=== PATIENT | female | born 1940 | race Caucasian/White ===

== ENCOUNTER 2022-04-10 19:49 | Observation (INO) | payer MEDICARE, SELFPAY ==
--- NOTE | ~2022-04-10 | XR_ITS ---
EXAMINATION: XR chest 2V DATE: 04/10/2022 21:03 INDICATION: Fever. Weakness. Confusion. TECHNIQUE: Frontal and lateral views of the chest were obtained. COMPARISON: None. FINDINGS: There are airspace opacities in the lower lung zones. No pleural effusion or pneumothorax. The heart size is normal. There is mild chronic anterior wedging of multiple midthoracic vertebral manolo dies. IMPRESSION: 1. Airspace opacities in the lower lung zones, consistent with atelectasis versus pneumonia. Reviewed, dictated and finalized at location A. IMPRESSION: 1. Airspace opacities in the lower lung zones, consistent with atelectasis vers us pneumonia.
[2022-04-10 20:02] VITALS: BP 95/48; PULSE 95; RESP 18; TEMP 36.7; O2SAT 94
[2022-04-10 20:49] VITALS: BP 97/69; PULSE 87; RESP 20; O2SAT 91
[2022-04-10 21:06] VITALS: BP 104/65
--- NOTE | 2022-04-10 21:09 | ED.FEVER ---
HPI - Fever General Chief Complaint: Fever Stated Complaint: weakness Time Seen by Provider: 04/10/22 20:41 History of Present Illness HPI Narrative: 82-year-old female presented the emergency department with family for evaluation of fever. Family states patient does have underlying history of dementia but has been more confused over the last few days. They report that the patient has had dark foul-smelling urine for the last few days. Family members have also had upper respiratory infections as recently as a week and a half ago. No confirmed COVID in the household. Family reports patient does have a history of underlying kidney disease. Related Data Home Medications Medication Instructions Recorded Confirmed carvedilol 3.125 mg tablet mg 04/11/22 pravastatin 40 mg tablet mg 04/11/22 rivaroxaban 2.5 mg tablet (Xarelto) mg 04/11/22 Allergies Allergy/AdvReac Type Severity Reaction Status Date / Time Sulfa (Sulfonamide Allergy Unknown Verified 04/10/22 20:11 Antibiotics) diphenhydramine AdvReac Nervousness Verified 04/10/22 20:50 [From Benadryl] Review of Systems Review of Systems: CONSTITUTIONAL: Fever EYES: Denies visual changes, redness, or discharge. ENT: Denies rhinorrhea, congestion, sore throat, or otalgia. CARDIOVASCULAR: Denies chest pain, palpitations, or edema. RESPIRATORY: Denies cough or dyspnea. GASTROINTESTINAL: Denies abdominal pain, nausea, vomiting, or diarrhea. GENITOURINARY: See HPI SKIN: Denies rash or itching. MUSCULOSKELETAL: Denies back pain, joint pain, or myalgia. NEUROLOGIC: Denies headache, numbness, or weakness. [facility] Past Medical History Medical History (Updated 04/11/22 @ 01:15 by Sherman Pyle DO) Dementia Recurrent UTI Social History Social History (Updated 04/11/22 @ 01:15 by Sherman Pyle DO) Social History: She lives with her daughter. Fairly dependent on family. Difficulty using walker as she would lean forward and fall over with walker. For code status patient is a full code but no intubation. Smoking status: Never smoker Alcohol intake: never Substance use: never Exam Narrative: APPEARANCE: Well appearing, no pain, no distress, well-nourished. HEAD: normocephalic, atraumatic. EYES: PERRLA/EOMI, conjunctivae clear. NOSE: Normal no drainage NECK: Supple. No adenopathy, no masses. RESPIRATORY: Airway patent, respirations nonlabored. Clear to auscultation bilaterally, no rales, rhonchi, wheezing. CARDIOVASCULAR: Regular rate and rhythm without murmurs rubs or gallops. ABDOMINAL: Soft, nontender, nondistended, normal bowel sounds MUSCULOSKELETAL: Moves all extremities. Strength/ROM intact, No edema, No calf tenderness. NEURO: Alert. Cranial nerves II through XII intact. Grossly intact SKIN: Warm, dry. Normal Color Course Course Emergency Course: Patient was treated with IV Rocephin for her urinary tract infection. Case discussed with hospitalist, patient was admitted for further antibiotics. Patient and family are comfortable with the plan with admission Vital Signs Vital signs: Vital Signs Temperature 98.0 F 04/10/22 20:02 Pulse Rate 95 04/10/22 20:02 Respiratory Rate 18 04/10/22 20:02 Blood Pressure 95/48 L 04/10/22 20:02 Pulse Oximetry 94 04/10/22 20:02 Oxygen Delivery Room Air 04/10/22 20:02 Temperature 98.0 F 04/11/22 01:10 Pulse Rate 60 04/11/22 01:10 Respiratory Rate 17 04/11/22 01:10 Blood Pressure 115/89 04/11/22 01:10 Pulse Oximetry 98 04/11/22 01:10 Oxygen Delivery Room Air 04/10/22 20:02 MDM - Fever Lab Data Result diagrams: 04/10/22 21:35 04/10/22 21:35 Labs: Lab Results 04/10/22 04/10/22 04/10/22 Range/Units 21:35 21:35 21:35 WBC 11.8 H (4.5-10.0) K/mm3 RBC 3.87 L (4.2-5.4) M/mm3 Hgb 12.8 (12.0-15.0) g/dL Hct 39.6 (37.0-47.0) % MCV 102.3 H (80-100) fl MCH 33.1 (26-34) pg MCHC 32.3
[2022-04-10 21:48] LABS: Basophils Percent Auto 0.3 % (0.2-1.2); Eosinophils Absolute Auto 0.1 K/mm3 (0-0.3); Eosinophils Percent Auto 0.8 % (0-4.4); Hematocrit 39.6 % (37.0-47.0); Hemoglobin 12.8 g/dL (12.0-15.0); Immature Granulocyte Absolute 0.05 K/mm3 (0.00-0.031); Immature Granulocyte Percent A 0.4 % (0-0.5); Lymphocytes Absolute Auto 1.64 K/mm3 (0.9-3.2); Lymphocytes Percent Auto 13.9 % (18.3-44.2); Mean Corpuscular HGB Conc 32.3 g/dl (32-36); Mean Corpuscular Hemoglobin 33.1 pg (26-34); Mean Corpuscular Volume 102.3 fl (80-100); Mean Platelet Volume 11.2 fl (7.4-10.4); Monocytes Percent Auto 8.1 % (2.6-8.5); Neutrophils Percent Auto 76.5 % (45.5-73.1); Platelet Count Result 154 k/mm3 (150-375); Red Blood Count 3.87 M/mm3 (4.2-5.4); Red Cell Distribution Width 13.2 % (11.5-14.5); White Blood Count 11.8 K/mm3 (4.5-10.0)
[2022-04-10 21:59] LABS: INR 1.8; Prothrombin Time 20.1 Seconds (11.1-14.7)
[2022-04-10 22:00] LABS: Partial Thromboplastin Time 42.1 SECONDS (22.3-36.8)
[2022-04-10 22:05] LABS: Alanine Aminotransferase 13 U/L (6-35); Albumin Level 4.1 g/dL (3.5-5.1); Alkaline Phosphatase 94 U/L (38-126); Anion Gap 8 mmol/L (8-16); Aspartate Amino Transferase 24 U/L (14-36); Bilirubin,Total 1.6 mg/dL (0.2-1.3); Blood Urea Nitrogen 19 mg/dL (7-17); Calcium 9.9 mg/dL (8.4-10.2); Carbon Dioxide 25 mmol/L (22-30); Chloride 103 mmol/L (98-107); Estimated CRCL calculation 31 ml/min; Estimated Glomerular Filt Rate 33; Glucose 110 mg/dL (65-110); Potassium 3.5 mmol/L (3.4-5.0); Sodium 136 mmol/L (137-145)
[2022-04-10 22:13] LABS: CRP 16.2 mg/dL (<1.0)
[2022-04-10 22:25] LABS: SARS-CoV-2 RNA PCR Negative
[2022-04-10 23:03] VITALS: BP 95/57; RESP 20
[2022-04-10 23:04] LABS: Appearance Urine Cloudy (Clear); Bilirubin Urine Negative (Negative); Blood Urine 2+ (Negative); Color Urine Yellow (Yellow); Glucose Urine UA Negative (Negative); Ketones Urine Negative (Negative); Leukocyte Esterase Ur 1+ LEU/UL (Negative); Nitrate Urine Negative (Negative); Protein Urine 1+ mg/dL (Negative); Specific Grav Ur 1.015 (1.001-1.035); pH Urine 8.5 (5.0-9.0)
[2022-04-10 23:08] LABS: Amorphous Sediment Urine Few; Bacteria Urine 1+ /hpf; Mucus Urine Rare /lpf; RBC Urine >75 /hpf (0-2); Squamous Epithelial Cell Urine Rare /hpf (Few); WBC Urine 31-50 /hpf
[2022-04-10 23:12] LABS: Add Urine Microscopic? YES
[2022-04-10 23:32] VITALS: BP 100/59; RESP 27; O2SAT 91
[2022-04-11 00:48] VITALS: BP 100/60; PULSE 98; RESP 20; O2SAT 97
[2022-04-11 01:10] VITALS: BP 115/89; PULSE 60; RESP 17; TEMP 36.7; O2SAT 98; BMI 34.8
--- NOTE | 2022-04-11 01:10 | PM.IMHP ---
H&P: HPI History of Present Illness Date/Time: 04/11/22 01:10 Chief Complaint: Altered mental status Narrative: Patient is an 82-year-old female with past medical history of dementia, recurrent UTIs who presents to ED with complaints of fevers and altered mental status. Patient lives with her daughter who is a primary pants busheler. Patient has noticed over last couple days patient has increasingly confused at home. Patient is very delirious (she was laughing uncontrollably during the entire interview) is unable to provide any history. In the ED: Patient found to have abnormal UA (elevated WBC, urine bacteria) consistent with UTI. Patient given dose of Rocephin. Patient be admitted for observation for urinary tract infection, altered mental status. Review of Systems Review of Systems: Limited due to dementia Constitutional: No Fever, No Chills, No Night Sweats, No Fatigue, No Malaise ENT/Mouth: No Hearing Changes, No Ear Pain, No Nasal Congestion, No Sinus Pain, No Hoarseness, No sore throat, No Rhinorrhea, No Swallowing Difficulty Eyes: No Eye Pain, No Redness, No Vision Changes Cardiovascular: No Chest Pain, No Palpitations, No Dyspnea on Exertion, No Orthopnea, No Claudication, No Edema Respiratory: No Cough, No Sputum, No Wheezing, No Shortness of Breath Gastrointestinal: No Nausea, No Vomiting, No Diarrhea, No Constipation, No Abdominal Pain, No Heartburn, No Hematochezia, No Melena Genitourinary: No Dysuria, No Urinary Frequency, No Hematuria, No Urinary Incontinence, No Urgency Musculoskeletal: No Arthralgias, No Myalgias, No Joint Swelling, No Joint Stiffness, No Back Pain Skin: No Skin Lesions, No Pruritis, No Hair Changes Neuro: No Weakness, No Numbness, No Paresthesias, No Loss of Consciousness, No Syncope, No Dizziness, No Headache Psych: No Anxiety/Panic, No Depression, No Insomnia Heme: No Bruising, No Bleeding Lymph: No Adenopathy Endocrine: No Polyuria, No Polydipsia, No Temperature Intolerance PMF Past Medical History Medical History (Updated 04/11/22 @ 01:15 by Sherman Pyle DO) Dementia Recurrent UTI Social History Social History (Updated 04/11/22 @ 01:15 by Ramakrishn R. Nalluri, DO) Social History: She lives with her daughter. Fairly dependent on family. Difficulty using walker as she would lean forward and fall over with walker. For code status patient is a full code but no intubation. Smoking status: Never smoker Alcohol intake: never Substance use: never Meds Home Medications and Allergies Home Medications Medication Instructions Recorded Confirmed Type carvedilol 3.125 mg tablet mg 04/11/22 History pravastatin 40 mg tablet mg 04/11/22 History rivaroxaban 2.5 mg tablet (Xarelto) mg 04/11/22 History Allergies Allergy/AdvReac Type Severity Reaction Status Date / Time Sulfa (Sulfonamide Allergy Unknown Verified 04/10/22 20:11 Antibiotics) diphenhydramine AdvReac Nervousness Verified 04/10/22 20:50 [From Benadryl] Vital Signs Vital Signs - 24 hr 04/10/22 20:02 04/10/22 20:49 04/10/22 21:06 Temperature 36.7 C Pulse Rate 95 87 Respiratory Rate 18 20 Blood Pressure 95/48 L 97/69 L 104/65 Pulse Oximetry 94 91 Oxygen Delivery Room Air 04/10/22 23:03 04/10/22 23:32 Temperature Pulse Rate Respiratory Rate 20 27 H Blood Pressure 95/57 L 100/59 L Pulse Oximetry 91 Oxygen Delivery Exam Narrative: - GENERAL: Pleasant elderly woman in no acute distress, did not answer questions appropriately - EYES: EOMI. Anicteric. - HENT: Moist mucous membranes. - LUNGS: Clear to auscultation bilaterally, no wheezing, rhonchi, or rales. - CARDIOVASCULAR: Regular rate and rhythm. No murmur. No JVD. - ABDOMEN: Soft, non-tender and non-distended. No palpable masses. - EXTREMITIES: No edema. Peripheral pulses 2+. Non-tender. - NEUROLOGIC: No focal neurological deficits. CN II-XII grossly intact. - PSYCHIATRIC: Awake, Alert and orient
[2022-04-11] MEDS: SODIUM CHLORIDE 0.9% IV 1,000 ML 100 ML IV CONT (04:32)
--- NOTE | 2022-04-11 05:28 | ADMGEN ---
This patient, Christine Glez, was admitted to [facility] Surg Room 316-02. Patient/family oriented to hospital policies and general routines including ID bracelet, bed and alarms, visiting hours, pain management, procedures, bathroom and other care routines, personal items, smoking policy, room service/diet, and visiting hours. Information on how to activate the Rapid Response Team has been discussed. Patient/Family are encouraged to report perceived risks to care and to ask questions if they do not understand what they are told or what they should do.
[2022-04-11 05:38] VITALS: BP 104/90; PULSE 88; RESP 17; TEMP 36.7; O2SAT 94
[2022-04-11 07:58] VITALS: O2SAT 91
--- NOTE | 2022-04-11 09:49 | PM.IMPN ---
Progress Note: A&P Assessment and Plan (1) Acute UTI: Code(s): N39.0 - Urinary tract infection, site not specified Status: Acute Assessment and Plan: -UA consistent with urinary tract infection, likely causing are altered mental status? - Patient had >600mL PVR this morning. Kc has been placed. -antibiotics: Starting Rocephin 1 g daily -IV fluids:? Normal saline 100 cc/hour (slightly hypotensive) - blood cultures pending, urine culture pending - Repeat labs in a.m. show improving leukocytosis. -PT and OT consulted up with disposition -chest x-ray likely atelectasis, giving incentive spirometer (2) Urinary retention: Code(s): R33.9 - Retention of urine, unspecified Status: Acute Assessment and Plan: - Patient had >600mL PVR this morning. Kc catheter was attempted twice but was unable to be placed.? - Urology was consulted to assist with evaluation of patient's obstructive symptoms and evaluate catheter placement. They advised this catheter should remain in place until outpatient urodynamics can be accomplished. - Soft tissues seen in the kc bag- they were sent to pathology for further evaluation. - Strict I&Os. (3) RUFINA (acute kidney injury): Code(s): N17.9 - Acute kidney failure, unspecified Status: Acute Assessment and Plan: -creatinine 1.5 on admission, 1.3 today, Unknown baseline -may be prerenal secondary to the in acute infection, given IV fluids Plan # other chronic conditions-will resume home medications -hyperlipidemia: Continue pravastatin -essential hypertension: Continue Coreg -history of atrial fibrillation? : On Coreg and Xarelto -advanced dementia Subjective Date/time seen: 04/11/22 09:49 I examined this patient today at bedside. Nursing was having some difficulty with the kc catheter placement. Patient had been complaining of urge to urinate but was having retention issues. Patient was completely disoriented to self, place, and time. She was very pleasant. She denied any chest pain, fevers, chills. She was unaware of her situation at the time of my exam. Review of Systems Review of Systems: All systems reviewed & are unremarkable except as noted in HPI and below Exam Narrative: GENERAL APPEARANCE: Alert and but disoriented, in no apparent distress. HEENT: PERRL, EOMI. Sclerae anicteric. Moist mucous membranes. NECK: Supple. No JVD or obvious carotid bruits. RESPIRATORY: Respirations are nonlabored. Breath sounds are equal and clear bilaterally. No wheezes, Rhonchi, or rales. CARDIOVASCULAR: Regular rate and rhythm with normal S1-S2. No murmurs, gallops, or rubs. GASTROINTESTINAL: Soft, flat, and benign. No mass, tenderness, guarding, or rebound. No organomegaly or hernia. Bowel sounds are present. SKIN: Warm, dry, well perfused. Good turgor. No lesions, nodules, or rashes noted. EXTREMITIES: No cyanosis, clubbing, or edema. Radial and pedal pulses intact. NEUROLOGICAL: Alert. Cranial nerves 2-12 are grossly intact. No gross focal deficits to casual conversation. PSYCHIATRIC: Patient is combative with nursing staff but in high spirits. Objective Data Vital Signs Vital Signs: Vital Signs - 24 hr 04/10/22 20:02 04/10/22 20:49 04/10/22 21:06 Temperature 98.0 F Pulse Rate 95 87 Respiratory Rate 18 20 Blood Pressure 95/48 L 97/69 L 104/65 Pulse Oximetry 94 91 Oxygen Delivery Room Air 04/10/22 23:03 04/10/22 23:32 04/11/22 01:10 Temperature 98.0 F Pulse Rate 60 Respiratory Rate 20 27 H 17 Blood Pressure 95/57 L 100/59 L 115/89 Pulse Oximetry 91 98 Oxygen Delivery 04/11/22 00:48 04/11/22 05:38 Temperature 98.0 F Pulse Rate 98 88 Respiratory Rate 20 17 Blood Pressure 100/60 104/90 Pulse Oximetry 97 94 Oxygen Delivery Meds/Results Medications: Active Medications Generic Name Dose Route Start Last Admin Trade Name Freq PRN Reason Stop D
[2022-04-11 11:38] LABS: Basophils Percent Auto 0.3 % (0.2-1.2); Eosinophils Absolute Auto 0.1 K/mm3 (0-0.3); Eosinophils Percent Auto 0.7 % (0-4.4); Hematocrit 36.8 % (37.0-47.0); Hemoglobin 11.7 g/dL (12.0-15.0); Immature Granulocyte Absolute 0.04 K/mm3 (0.00-0.031); Immature Granulocyte Percent A 0.4 % (0-0.5); Lymphocytes Absolute Auto 0.83 K/mm3 (0.9-3.2); Lymphocytes Percent Auto 8.3 % (18.3-44.2); Mean Corpuscular HGB Conc 31.8 g/dl (32-36); Mean Corpuscular Hemoglobin 32.9 pg (26-34); Mean Corpuscular Volume 103.4 fl (80-100); Mean Platelet Volume 11.5 fl (7.4-10.4); Monocytes Absolute Auto 0.7 K/mm3 (0.1-0.6); Monocytes Percent Auto 6.7 % (2.6-8.5); Neutrophils Absolute Auto 8.3 K/mm3 (1.3-6.7); Neutrophils Percent Auto 83.6 % (45.5-73.1); Platelet Count Result 147 k/mm3 (150-375); Red Blood Count 3.56 M/mm3 (4.2-5.4); Red Cell Distribution Width 13.1 % (11.5-14.5)
[2022-04-11 11:47] LABS: Alanine Aminotransferase 13 U/L (6-35); Albumin Level 3.8 g/dL (3.5-5.1); Alkaline Phosphatase 87 U/L (38-126); Anion Gap 5 mmol/L (8-16); Aspartate Amino Transferase 22 U/L (14-36); Bilirubin,Total 1.4 mg/dL (0.2-1.3); Blood Urea Nitrogen 18 mg/dL (7-17); Calcium 9.1 mg/dL (8.4-10.2); Carbon Dioxide 27 mmol/L (22-30); Chloride 108 mmol/L (98-107); Estimated CRCL calculation 35 ml/min; Estimated Glomerular Filt Rate 39; Glucose 97 mg/dL (65-110); Potassium 3.3 mmol/L (3.4-5.0); Sodium 140 mmol/L (137-145)
[2022-04-11 14:00] VITALS: BP 109/65; PULSE 109; RESP 18; TEMP 36.9; O2SAT 93
--- NOTE | 2022-04-11 15:32 | WPDURCON ---
Assessment and Plan Assessment and plan (1) Urinary retention: Code(s): R33.9 - Retention of urine, unspecified Status: Acute (2) History of recurrent UTI (urinary tract infection): Code(s): Z87.440 - Personal history of urinary (tract) infections Status: Acute Assessment and Plan: Patient with reported history of recurrent urinary tract infections and documented residual volumes of greater than 600 cc. Placed urethral catheter at the bedside without difficulty with return of 600 cc clear urine. This catheter should probably remain indwelling until she can have outpatient urodynamics. Plan Urology Consult Note HPI Date Seen: 04/11/22 Requesting Physician: Sneha Fraga PA-C Primary Care Provider: Kwesi Negron, Consult Narrative Narrative: Christine Glez is a 82 year old female, previously unknown to our practice, has chronic dementia was admitted through the ER with a several-day history of fever and declining mental status. She lives with her daughter. There is reports recurrent urinary tract infections in the past but, again, I have no knowledge that. Her daughter is unavailable for consultation at this time. Nurses bladder scan the patient and documented a residual volume of 650 cc but were unable to place a catheter. Review of Systems Review of Systems: ROS unobtainable: Yes unobtainable due to mental status PMFSH Past Medical History Medical History (Updated 04/11/22 @ 15:35 by Jurgen Bueno MD) Dementia Recurrent UTI Social History Social History (Updated 04/11/22 @ 01:15 by Sherman Pyle DO) Social History: She lives with her daughter. Fairly dependent on family. Difficulty using walker as she would lean forward and fall over with walker. For code status patient is a full code but no intubation. Smoking packs per day: 1 Smoking cigarettes per day: 20.0 Years smoked: 30 Smoking pack-years: 30.00 Smoking status: Former smoker Alcohol intake: never Substance use: never Substance use type: does not use Spiritual care concerns: No Meds Home Medications and Allergies Home Medications Medication Instructions Recorded Confirmed Type carvedilol 3.125 mg tablet mg 04/11/22 History pravastatin 40 mg tablet mg 04/11/22 History rivaroxaban 2.5 mg tablet (Xarelto) mg 04/11/22 History Allergies Allergy/AdvReac Type Severity Reaction Status Date / Time Sulfa (Sulfonamide Allergy Unknown Verified 04/10/22 20:11 Antibiotics) diphenhydramine AdvReac Nervousness Verified 04/10/22 20:50 [From Benadryl] Vital Signs Vital Signs - 24 hr 04/10/22 20:02 04/10/22 20:49 04/10/22 21:06 Temperature 98.0 F Pulse Rate 95 87 Respiratory Rate 18 20 Blood Pressure 95/48 L 97/69 L 104/65 Pulse Oximetry 94 91 Oxygen Delivery Room Air 04/10/22 23:03 04/10/22 23:32 04/11/22 01:10 Temperature 98.0 F Pulse Rate 60 Respiratory Rate 20 27 H 17 Blood Pressure 95/57 L 100/59 L 115/89 Pulse Oximetry 91 98 Oxygen Delivery 04/11/22 00:48 04/11/22 05:38 04/11/22 07:58 Temperature 98.0 F Pulse Rate 98 88 Respiratory Rate 20 17 Blood Pressure 100/60 104/90 Pulse Oximetry 97 94 91 Oxygen Delivery Room Air 04/11/22 08:00 Temperature Pulse Rate Respiratory Rate Blood Pressure Pulse Oximetry Oxygen Delivery Room Air Exam Const: General: no acute distress Resp: Effort & Inspection: normal respiratory effort GI: Inspection: non-distended GI Palp: No abdominal tenderness and No Guarding due to palpation present (GI) Auscultation: normal bowel sounds Results Labs CBC & Chem 7: 04/11/22 11:12 04/11/22 11:12 Labs: Short CBC 04/10/22 04/11/22 Range/Units 21:35 11:12 WBC 11.8 H 10.0 (4.5-10.0) K/mm3 Hgb 12.8 11.7 L (12.0-15.0) g/dL Hct 39.6 36.8 L (37.0-47.0) % Plt Count 154 147 L (150-375) k/mm3 [facility]
[2022-04-11 16:42] LABS: Creatinine Urine 62.3 mg/dL
[2022-04-11 16:45] LABS: Sodium Urine Random 64 meq/L
--- NOTE | 2022-04-11 20:04 | P.PNCROSS_ITS ---
Event Note Event Note Event Note: Patient lost IV access. Family does not want patient to be stuck again. WBC c ount has normalized. Will switch to PO cefdinir.
--- NOTE | 2022-04-11 20:04 | PM.EVENT ---
Event Note Event Note Event Note: Patient lost IV access. Family does not want patient to be stuck again. WBC count has normalized. Will switch to PO cefdinir.
[2022-04-11] MEDS: CEFDINIR 300 MG CAPSULE PO (21:32)
[2022-04-11 22:00] VITALS: BP 118/89; PULSE 89; RESP 17; TEMP 36.6; O2SAT 90
[2022-04-12] VITALS (8 sets, daily range): BP systolic 106–120; BP diastolic 74–82; PULSE 68–97; RESP 16–18; TEMP 36.2–36.9; O2SAT 92–98
[2022-04-12 06:29] LABS: Basophils Percent Auto 0.5 % (0.2-1.2); Eosinophils Absolute Auto 0.2 K/mm3 (0-0.3); Eosinophils Percent Auto 2.7 % (0-4.4); Hematocrit 36.1 % (37.0-47.0); Hemoglobin 11.9 g/dL (12.0-15.0); Immature Granulocyte Absolute 0.04 K/mm3 (0.00-0.031); Immature Granulocyte Percent A 0.5 % (0-0.5); Lymphocytes Absolute Auto 1.45 K/mm3 (0.9-3.2); Lymphocytes Percent Auto 16.9 % (18.3-44.2); Mean Corpuscular Hemoglobin 33.2 pg (26-34); Mean Corpuscular Volume 100.8 fl (80-100); Mean Platelet Volume 11.2 fl (7.4-10.4); Monocytes Absolute Auto 0.6 K/mm3 (0.1-0.6); Monocytes Percent Auto 6.9 % (2.6-8.5); Neutrophils Absolute Auto 6.2 K/mm3 (1.3-6.7); Neutrophils Percent Auto 72.5 % (45.5-73.1); Platelet Count Result 149 k/mm3 (150-375); Red Blood Count 3.58 M/mm3 (4.2-5.4); White Blood Count 8.6 K/mm3 (4.5-10.0)
[2022-04-12 06:41] LABS: Alanine Aminotransferase 14 U/L (6-35); Albumin Level 3.5 g/dL (3.5-5.1); Alkaline Phosphatase 86 U/L (38-126); Anion Gap 8 mmol/L (8-16); Aspartate Amino Transferase 26 U/L (14-36); Blood Urea Nitrogen 17 mg/dL (7-17); Calcium 9.2 mg/dL (8.4-10.2); Carbon Dioxide 26 mmol/L (22-30); Chloride 108 mmol/L (98-107); Estimated CRCL calculation 37 ml/min; Estimated Glomerular Filt Rate 43; Glucose 84 mg/dL (65-110); Magnesium 2.3 mg/dL (1.6-2.3); Potassium 3.2 mmol/L (3.4-5.0); Sodium 142 mmol/L (137-145)
--- NOTE | 2022-04-12 08:35 | PM.IMPN ---
Progress Note: A&P Assessment and Plan (1) Acute UTI: Code(s): N39.0 - Urinary tract infection, site not specified Status: Acute Assessment and Plan: - UA consistent with urinary tract infection, likely causing are altered mental status? - Patient had >600mL PVR this morning. Kc has been placed. - antibiotics: Starting Rocephin 1 g daily - IV fluids:? Normal saline 100 cc/hour (slightly hypotensive) - blood cultures pending - Urine culture showed Citrobacter braakii sensitive to ceftriaxone, patient was transitioned to PO cefdinir by night hospitalist. Will continue and adjust therapy as needed. ABX Day 3 today, will continue for 4 more days outpatient. - Repeat labs in a.m. show improving renal functions. - PT and OT consulted up with disposition - chest x-ray likely atelectasis, giving incentive spirometer (2) Urinary retention: Code(s): R33.9 - Retention of urine, unspecified Status: Acute Assessment and Plan: - Patient has been previously seen by Dr. Marsh, Urology in [facility]. Records are being requested. - Patient had >600mL PVR yesterday. - Urology was consulted to assist with evaluation of patient's obstructive symptoms and evaluate catheter placement. They advised this catheter should remain in place until outpatient urodynamics can be accomplished. - Soft tissues seen in the kc bag- they were sent to pathology for further evaluation. - Strict I&Os. 960mL in today 250 out. (3) RUFINA (acute kidney injury): Code(s): N17.9 - Acute kidney failure, unspecified Status: Acute Assessment and Plan: Creatinine 1.5 on admission, 1.2 today. Per family, patient is stage III CKD. May be prerenal secondary to the in acute infection, given IV fluids Patient on 10mg lasix daily at home, will restart tomorrow AM as patient is having some increased lower extremity swelling. Patient is normotensive. (4) History of pulmonary embolism: Code(s): Z86.711 - Personal history of pulmonary embolism Status: Acute Assessment and Plan: Patient with history of past PEs on xarelto 10mg daily. Re-confirmed with family today as patient has dementia and is a poor historian. Patient was placed on SQ Heparin pending med reconciliation. Re-started Xarelto. - Will continue to monitor, continue Xarelto. (5) Dementia: Qualifiers: Dementia behavioral disturbance: with behavioral disturbance Code(s): F03.90 - Unspecified dementia without behavioral disturbance Status: Acute Assessment and Plan: Patient with history of dementia. Per family, patient is slightly deviated from her baseline, which is why she was brought into the hospital initially. She is not on any medical therapy and currently lives with her daughter who is her rail layer. Daughter also reports patient does not eat very well typically. - Patient pulled out her IV, but is now tolerating PO intake and has been transitioned to PO medications. - Continue to monitor for appetite and strict I&Os. - Patient ate 40% of her meal last night. (6) CKD (chronic kidney disease) stage 3, GFR 30-59 ml/min: Code(s): N18.30 - Chronic kidney disease, stage 3 unspecified Status: Acute Assessment and Plan: Plan as above. (7) Diarrhea: Code(s): R19.7 - Diarrhea, unspecified Status: Acute Assessment and Plan: Patient is having frequent loose but formed non-bloody stools. No Leukocytosis No abdominal pain, nausea, or vomiting. Stool culture ordered. Loperamide for symptom control. Plan # other chronic conditions -Hyperlipidemia: Continue pravastatin -Essential hypertension: Continue Coreg -Unclear if patient had history of AFIB- EKG showed NSR w/ First-degree AV block and occasional supraventricular premature complexes - leg pain- Patient and family states patient has chronic leg pain from vascular disease. Will elevate legs and a
[2022-04-12] MEDS: RIVAROXABAN 10 MG TABLET PO (09:18)
[2022-04-12] MEDS: carvediloL 3.125 MG TABLET PO ×2 (09:18→20:36)
[2022-04-12] MEDS: CEFDINIR 300 MG CAPSULE PO ×2 (09:18→20:36)
[2022-04-12] MEDS: PRAVASTATIN SODIUM 20 MG TABLET 40 MG PO (09:18)
--- NOTE | 2022-04-12 13:34 | PC.NURSE ---
Paperwork signed by POA for release of medical records
--- NOTE | 2022-04-12 13:38 | PC.NURSE ---
Pt PCP is Kwesi Negron MD per [facility]
[2022-04-12] MEDS: LOPERAMIDE HCL 2 MG CAPSULE 4 MG PO (14:18)
--- NOTE | 2022-04-12 14:56 | WPDUROPN2 ---
Progress Note: A&P Assessment and Plan (1) Urinary retention: Code(s): R33.9 - Retention of urine, unspecified Status: Acute (2) History of recurrent UTI (urinary tract infection): Code(s): Z87.440 - Personal history of urinary (tract) infections Status: Acute Assessment and Plan: Patient with reported history of recurrent urinary tract infections and documented residual volumes of greater than 600 cc. Placed urethral catheter at the bedside without difficulty with return of 600 cc clear urine. This catheter should probably remain indwelling until she can have outpatient urodynamics. 04/12/22 Tolerating catheter well. As above, with plan to discharge with an indwelling catheter for outpatient evaluation including urodynamics. Subjective Subjective Date/Time Seen: 04/12/22 14:56 Comfortable, no complaints Review of Systems Cardiovascular: Cardiovascular: Denies chest pain, Denies lightheadedness, Denies palpitations and Denies dyspnea Respiratory: Respiratory: Denies dyspnea Gastrointestinal: Gastrointestinal: Denies diarrhea, Denies nausea and Denies vomiting Genitourinary: Genitourinary: Denies hematuria and Denies dysuria Endocrine: Endocrine: Denies palpitations Exam Const: General: no acute distress Resp: Effort & Inspection: normal respiratory effort GI: Inspection: non-distended GI Palp: No abdominal tenderness and No Guarding due to palpation present (GI) Auscultation: normal bowel sounds Urinary Catheter: Urinary Catheter: patent and draining and urine clear Objective Data Vital Signs Vital Signs: Vital Signs - 24 hr 04/11/22 22:00 04/12/22 06:00 04/12/22 09:18 Temperature 97.9 F 98.4 F Pulse Rate 89 68 68 Respiratory Rate 17 18 Blood Pressure 118/89 120/74 Pulse Oximetry 90 94 Oxygen Delivery 04/12/22 08:00 04/12/22 09:35 Temperature Pulse Rate 68 Respiratory Rate 18 Blood Pressure Pulse Oximetry 94 92 Oxygen Delivery Room Air Room Air Intake/Output Intake/Output: Intake & Output 04/09/22 04/10/22 04/11/22 04/12/22 23:59 23:59 23:59 23:59 Intake Total 580 380 Output Total 250 Balance 580 130 Meds/Results Medications: Active Medications Generic Name Dose Route Start Last Admin Trade Name Freq PRN Reason Stop Dose Admin Acetaminophen 650 mg 04/11/22 01:07 Acetaminophen 325 Mg Tablet PO Q4H PRN Mild Pain (1-3) or Fever Al Hydrox/Mg Hydrox/Simethicone 30 ml 04/11/22 01:07 Mag Hydrox/Al Hydrox/Simeth 30 Ml Udc PO QID PRN Dyspepsia Aspirin 81 mg 04/13/22 08:00 Aspirin 81 Mg Chewable Tablet PO DAILY@0800 [facility] Carvedilol 3.125 mg 04/12/22 09:00 04/12/22 09:18 Carvedilol 3.125 Mg Tablet PO 3.125 mg Q12HR [facility] Administration Cefdinir 300 mg 04/11/22 21:00 04/12/22 09:18 Cefdinir 300 Mg Capsule PO 300 mg Q12HR [facility] Administration Furosemide 10 mg 04/13/22 09:00 Furosemide 10 Mg Tablet PO DAILY [facility] Ondansetron HCl 4 mg 04/11/22 01:07 Ondansetron Inj 4 Mg/2 Ml Vial IV PUSH Q6H PRN Nausea And Vomiting Pravastatin Sodium 40 mg 04/12/22 09:00 04/12/22 09:18 Pravastatin Sodium 20 Mg Tablet PO 40 mg DAILY [facility] Administration Rivaroxaban 10 mg 04/12/22 09:00 04/12/22 09:18 Rivaroxaban 10 Mg Tablet PO 10 mg QAM [facility] Administration Tolnaftate 1 applic 04/12/22 21:00 Tolnaftate 1% Powder 45 Gm Btl TOPICAL Q12HR [facility] Radiology Results: ITS Impressions Chest X-Ray 04/10/22 21:04 IMPRESSION: 1. Airspace opacities in the lower lung zones, consistent with atelectasis versus pneumonia. Labs Labs: Laboratory Results - last 24 hr 04/11/22 04/12/22 04/12/22 16:18 06:00 06:00 WBC 8.6 RBC 3.58 L Hgb 11.9 L Hct 36.1 L MCV 100.8 H MCH 33.2 MCHC 33.0 RDW 13.0 Plt Count 149 L MPV 11.2 H Immature Gran % (Auto) 0.5 Neut % (Auto) 72.5 Ly
--- NOTE | 2022-04-12 16:14 | ECG_ITS ---
Measurements Intervals [place] Rate: 76 P: 64 GA: 259 QRS: -27 QRSD: 87 T: 12 QT: 359 QTc: 405 Interpretive Statements SINUS RHYTHM WITH FIRST DEGREE AV BLOCK ATRIAL AND VENTRICULAR PREMATURE COMPLEXES LOW QRS VOLTAGE IN PRECORDIAL LEADS CANNOT RULE OUT SEPTAL INFARCT, AGE INDETERMINATE INFERIOR INFARCT, AGE INDETERMINATE BASELINE ARTIFACT- I, II, III, AVR ABNORMAL ECG Electronically Signed On 04-12-2022 14:12:16 CDT by Clyde Villalobos D.O.
--- NOTE | 2022-04-12 17:54 | PC.NURSE ---
this nurse found pt sitting in trash can, help to chair by x2 assist, placed back to bed x2 assist. Pt remains confused at baseline A&ox1.
[2022-04-12] MEDS: TOLNAFTATE 1% POWDER 45 GM BTL 1 APPLIC TOPICAL (20:37)
[2022-04-13] VITALS (7 sets, daily range): BP systolic 121–130; BP diastolic 61–88; PULSE 67–80; RESP 13–20; TEMP 36.5–37; O2SAT 93–98
[2022-04-13 07:22] LABS: Basophils Absolute Auto 0.1 K/mm3 (0.0-0.1); Basophils Percent Auto 0.8 % (0.2-1.2); Eosinophils Absolute Auto 0.4 K/mm3 (0-0.3); Eosinophils Percent Auto 5.7 % (0-4.4); Hematocrit 37.4 % (37.0-47.0); Hemoglobin 12.2 g/dL (12.0-15.0); Immature Granulocyte Absolute 0.04 K/mm3 (0.00-0.031); Immature Granulocyte Percent A 0.5 % (0-0.5); Lymphocytes Absolute Auto 1.26 K/mm3 (0.9-3.2); Lymphocytes Percent Auto 16.4 % (18.3-44.2); Mean Corpuscular HGB Conc 32.6 g/dl (32-36); Mean Corpuscular Hemoglobin 33.3 pg (26-34); Mean Corpuscular Volume 102.2 fl (80-100); Mean Platelet Volume 11.6 fl (7.4-10.4); Monocytes Absolute Auto 0.6 K/mm3 (0.1-0.6); Monocytes Percent Auto 7.7 % (2.6-8.5); Neutrophils Absolute Auto 5.3 K/mm3 (1.3-6.7); Neutrophils Percent Auto 68.9 % (45.5-73.1); Platelet Count Result 145 k/mm3 (150-375); Red Blood Count 3.66 M/mm3 (4.2-5.4); Red Cell Distribution Width 12.9 % (11.5-14.5); White Blood Count 7.7 K/mm3 (4.5-10.0)
[2022-04-13 07:48] LABS: Alanine Aminotransferase 19 U/L (6-35); Albumin Level 3.6 g/dL (3.5-5.1); Alkaline Phosphatase 86 U/L (38-126); Anion Gap 9 mmol/L (8-16); Aspartate Amino Transferase 37 U/L (14-36); Blood Urea Nitrogen 19 mg/dL (7-17); Calcium 9.3 mg/dL (8.4-10.2); Carbon Dioxide 25 mmol/L (22-30); Chloride 107 mmol/L (98-107); Estimated CRCL calculation 41 ml/min; Estimated Glomerular Filt Rate 48; Glucose 91 mg/dL (65-110); Potassium 3.4 mmol/L (3.4-5.0); Sodium 141 mmol/L (137-145)
--- NOTE | 2022-04-13 08:06 | PM.DS ---
DS: Admitting Diagnosis Discharge Date 04/14/22 1600 <Sneha Fraga PA-C - Last Filed: 04/14/22 11:39> Admitting Diagnosis altered mental state <Sneha Fraga PA-C - Last Filed: 04/14/22 11:39> DS: Discharge Diagnosis Discharge Diagnosis (1) Acute UTI: Code(s): N39.0 - Urinary tract infection, site not specified <Sneha Fraga PA-C - Last Filed: 04/14/22 11:39> Status: Acute <Sneha Fraga PA-C - Last Filed: 04/14/22 11:39> Assessment and Plan: - UA consistent with urinary tract infection, likely causing are altered mental status? - Patient had >600mL PVR this morning. Kc has been placed. - antibiotics: Starting Rocephin 1 g daily - IV fluids:? Normal saline 100 cc/hour (slightly hypotensive) - blood cultures pending - Urine culture showed Citrobacter braakii sensitive to ceftriaxone, patient was transitioned to PO cefdinir by night hospitalist. Will continue and adjust therapy as needed. ABX Day 5 today, will continue for 2 more days outpatient. - Repeat labs in a.m. show improving renal functions. - PT and OT consulted up with disposition- do recommend SNF vs memory care placement at this time. 04/13- Patient sitting up eating lunch today. Her mental status has improved to baseline. She answers all my questions clearly today. She denies chest pain, shortness of breath, nausea, abdominal pain, diarrhea. Her leukocytosis has resolved on antibiotic therapy. We will discharge with additional OP abx for a total course of 7 days. 04/14- Her leukocytosis has resolved on antibiotic therapy. We will discharge with an additional 2 days OP abx for a total course of 7 days.?Follow up will be scheduled with Dr. Bueno for urodynamics. Discussed plan with the family who agree and will contact his office. <Sneha Fraga PA-C - Last Filed: 04/14/22 11:39> (2) Urinary retention: Code(s): R33.9 - Retention of urine, unspecified <Sneha Fraga PA-C - Last Filed: 04/14/22 11:39> Status: Acute <Sneha Fraga PA-C - Last Filed: 04/14/22 11:39> Assessment and Plan: - Patient has been previously seen by Dr. Marsh, Urology in [facility]. Records are being requested. - Patient had >600mL PVR. - Urology was consulted to assist with evaluation of patient's obstructive symptoms and evaluate catheter placement. They advised this catheter should remain in place until outpatient urodynamics can be accomplished. - Soft tissues seen in the kc bag- they were sent to pathology for further evaluation, pending. 04/13 - Strict I&Os. 1050in/750out - Given normal renal function, restarted patient's home dose of lasix. This has improved her LE edema greatly today. - Urology was consulted to assist with evaluation of patient's obstructive symptoms and evaluate catheter placement. They advised this catheter should remain in place until outpatient urodynamics can be accomplished.?Discussed with POA, they would like a referral to see Dr. Bueno instead of their prior urologist, and we will place this referral for follow up. Patient will be discharged with kc catheter in place. 04/14 - Renal function appears to be at baseline. Will continue Diuretics. Patient received gentle IV fluids yesterday afternoon due to poor PO intake. Plan to F/U with urology remains the same. Patient will be discharged with kc catheter in place. <Sneha Fraga PA-C - Last Filed: 04/14/22 11:39> (3) RUFINA (acute kidney injury): Code(s): N17.9 - Acute kidney failure, unspecified <Sneha Fraga PA-C - Last Filed: 04/14/22 11:39> Status: Acute <Sneha Fraga PA-C - Last Filed: 04/14/22 11:39> Assessment and Plan: Resolved Creatinine 1.5 on admission, 1.2 today. Per family, patient is stage III CKD. May be prerenal secondary to the in acute infection, given IV fluids, resolved. Patient on 10mg lasix daily at home, we have restarted this and patient is tole
[2022-04-13] MEDS: carvediloL 3.125 MG TABLET PO ×2 (08:20→20:24)
[2022-04-13] MEDS: ASPIRIN 81 MG CHEWABLE TABLET PO (08:20)
[2022-04-13] MEDS: RIVAROXABAN 10 MG TABLET PO (08:20)
[2022-04-13] MEDS: FUROSEMIDE 10 MG TABLET PO (08:20)
[2022-04-13] MEDS: CEFDINIR 300 MG CAPSULE PO ×2 (08:20→20:24)
[2022-04-13] MEDS: PRAVASTATIN SODIUM 20 MG TABLET 40 MG PO (08:21)
[2022-04-13] MEDS: TOLNAFTATE 1% POWDER 45 GM BTL 1 APPLIC TOPICAL ×2 (08:22→20:24)
--- NOTE | 2022-04-13 10:48 | PC.NURSE ---
Yary from [facility] here to assess pt
--- NOTE | 2022-04-13 12:09 | PC.NURSE ---
informed charge nurse Evelyne that pt is missing dentures, dentures not in pt room. Reported by family.
--- NOTE | 2022-04-13 13:13 | PC.NURSE ---
dentures found in bathroom
--- NOTE | 2022-04-13 16:24 | PC.NURSE ---
pt to discharge possible to [facility] either this evening of tomorrow.
--- NOTE | 2022-04-13 16:24 | PC.NURSE ---
Pt to discharge with de MENESES.
--- NOTE | 2022-04-13 16:51 | PM.IMPN ---
Progress Note: A&P Assessment and Plan (1) Acute UTI: Code(s): N39.0 - Urinary tract infection, site not specified <Sneha Fraga PA-C - Last Filed: 04/13/22 17:06> Status: Acute <Sneha Stevenson HOLLEY Fraga - Last Filed: 04/13/22 17:06> Assessment and Plan: - UA consistent with urinary tract infection, likely causing are altered mental status? - Patient had >600mL PVR this morning. Kc has been placed. - antibiotics: Starting Rocephin 1 g daily - IV fluids:? Normal saline 100 cc/hour (slightly hypotensive) - blood cultures pending - Urine culture showed Citrobacter braakii sensitive to ceftriaxone, patient was transitioned to PO cefdinir by night hospitalist. Will continue and adjust therapy as needed. ABX Day 4 today, will continue for 3 more days . - Repeat labs in a.m. show improving renal functions. - PT and OT consulted up with disposition- do recommend SNF vs memory care placement at this time. 04/13- Patient sitting up eating lunch today. Her mental status has improved to baseline. She answers all my questions clearly today. She denies chest pain, shortness of breath, nausea, abdominal pain, diarrhea. Her leukocytosis has resolved on antibiotic therapy. We will discharge tomorrow with an additional 2 days OP abx for a total course of 7 days. <Sneha Fraga PA-C - Last Filed: 04/13/22 17:06> (2) Urinary retention: Code(s): R33.9 - Retention of urine, unspecified <Sneha Fraga PA-C - Last Filed: 04/13/22 17:06> Status: Acute <Sneha Fraga PA-C - Last Filed: 04/13/22 17:06> Assessment and Plan: - Patient has been previously seen by Dr. Marsh, Urology in [facility]. Records are being requested for the past 2 years, pending receipt - Patient had >600mL PVR. - Urology was consulted to assist with evaluation of patient's obstructive symptoms and evaluate catheter placement. They advised this catheter should remain in place until outpatient urodynamics can be accomplished. - Soft tissues seen in the kc bag- they were sent to pathology for further evaluation, pending. 04/13 - Strict I&Os. 1050in/750out - Given normal renal function, restarted patient's home dose of lasix. This has improved her LE edema greatly today. - Urology was consulted to assist with evaluation of patient's obstructive symptoms and evaluate catheter placement. They advised this catheter should remain in place until outpatient urodynamics can be accomplished.?Discussed with POA, they would like a referral to see Dr. Bueno instead of their prior urologist, and we will place this referral for follow up. Patient will be discharged with kc catheter in place. - Records request for urology still pending. Will include these in patient's chart prior to discharge. <Sneha Fraga PA-C - Last Filed: 04/13/22 17:06> (3) RUFINA (acute kidney injury): Code(s): N17.9 - Acute kidney failure, unspecified <Sneha Fraga PA-C - Last Filed: 04/13/22 17:06> Status: Acute <Sneha Fraga PA-C - Last Filed: 04/13/22 17:06> Assessment and Plan: Resolved Creatinine 1.5 on admission, 1.1 today. Per family, patient is stage III CKD. May be prerenal secondary to the in acute infection, given IV fluids, resolved. Patient on 10mg lasix daily at home, will restart tomorrow AM as patient is having some increased lower extremity swelling. Patient is normotensive. <Sneha Fraga PA-C - Last Filed: 04/13/22 17:06> (4) History of pulmonary embolism: Code(s): Z86.711 - Personal history of pulmonary embolism <Sneha Fraga PA-C - Last Filed: 04/13/22 17:06> Status: Acute <Sneha Fraga PA-C - Last Filed: 04/13/22 17:06> Assessment and Plan: Patient with history of past PEs on xarelto 10mg daily. Re-confirmed with family as patient has dementia and is a poor historian. Patient was placed on SQ Heparin pending med reconciliation. Re-star
--- NOTE | 2022-04-13 17:57 | PC.NURSE ---
Md Spangler informed unable to start IV in for IV fluid ordered, informed charge nurse to attempt as well.
[2022-04-13] MEDS: MAG HYDROX/AL HYDROX/SIMETH 30 ML UDC PO (18:55)
--- NOTE | 2022-04-13 20:20 | PCCCNOTE ---
Late entry: Phone call received at 1640 from Christina at [facility] still needing patient's SSN #. Met with patient at bedside and patient unable to provide. Called to [facility]aughter[facility] at 2020 no answer left vm message requesting return call with SSN, provided plant health care technician's #
[2022-04-13] MEDS: SODIUM CHLORIDE 0.9% IV 500 ML 100 ML IV CONT (23:00)
[2022-04-14 06:00] VITALS: BP 121/77; PULSE 62; RESP 20; TEMP 36.6; O2SAT 96
[2022-04-14 06:25] LABS: Basophils Percent Auto 0.6 % (0.2-1.2); Eosinophils Absolute Auto 0.5 K/mm3 (0-0.3); Eosinophils Percent Auto 8.7 % (0-4.4); Hemoglobin 11.2 g/dL (12.0-15.0); Immature Granulocyte Absolute 0.05 K/mm3 (0.00-0.031); Immature Granulocyte Percent A 0.8 % (0-0.5); Lymphocytes Absolute Auto 1.41 K/mm3 (0.9-3.2); Lymphocytes Percent Auto 22.6 % (18.3-44.2); Mean Corpuscular HGB Conc 32.9 g/dl (32-36); Mean Corpuscular Hemoglobin 33.4 pg (26-34); Mean Corpuscular Volume 101.5 fl (80-100); Monocytes Absolute Auto 0.5 K/mm3 (0.1-0.6); Monocytes Percent Auto 7.4 % (2.6-8.5); Neutrophils Absolute Auto 3.7 K/mm3 (1.3-6.7); Neutrophils Percent Auto 59.9 % (45.5-73.1); Platelet Count Result 170 k/mm3 (150-375); Red Blood Count 3.35 M/mm3 (4.2-5.4); Red Cell Distribution Width 12.9 % (11.5-14.5); White Blood Count 6.2 K/mm3 (4.5-10.0)
[2022-04-14 06:37] LABS: Alanine Aminotransferase 18 U/L (6-35); Albumin Level 3.2 g/dL (3.5-5.1); Alkaline Phosphatase 81 U/L (38-126); Anion Gap 6 mmol/L (8-16); Aspartate Amino Transferase 30 U/L (14-36); Bilirubin,Total 0.7 mg/dL (0.2-1.3); Blood Urea Nitrogen 15 mg/dL (7-17); Calcium 9.1 mg/dL (8.4-10.2); Carbon Dioxide 29 mmol/L (22-30); Chloride 105 mmol/L (98-107); Estimated CRCL calculation 37 ml/min; Estimated Glomerular Filt Rate 43; Glucose 89 mg/dL (65-110); Potassium 3.3 mmol/L (3.4-5.0); Sodium 140 mmol/L (137-145)
[2022-04-14] MEDS: FUROSEMIDE 10 MG TABLET PO (08:29)
[2022-04-14] MEDS: PRAVASTATIN SODIUM 20 MG TABLET 40 MG PO (08:29)
[2022-04-14] MEDS: RIVAROXABAN 10 MG TABLET PO (08:29)
[2022-04-14] MEDS: ASPIRIN 81 MG CHEWABLE TABLET PO (08:29)
[2022-04-14] MEDS: carvediloL 3.125 MG TABLET PO (08:29)
[2022-04-14] MEDS: CEFDINIR 300 MG CAPSULE PO (08:29)
[2022-04-14] MEDS: TOLNAFTATE 1% POWDER 45 GM BTL 1 APPLIC TOPICAL (08:30)
[2022-04-14] MEDS: POTASSIUM CHLORIDE 20 MEQ PACKET (FOR LIQUID) 40 MEQ PO (08:32)
--- NOTE | 2022-04-14 12:23 | PCPTNOTE ---
The patient treatment was not able to be completed on this date due to patient getting ready to eat lunch and patient's family reports that patient is getting ready to leave to go to [facility]. RN notified. Will continue plan of care as long as patient is in the hospital.
[2022-04-14 14:00] VITALS: BP 124/70; PULSE 66; RESP 20; TEMP 36.6; O2SAT 97
[2022-04-14 14:42] LABS: EDCOVIDSCREEN Negative (Negative)
== END 2022-04-14 15:30 ==
LOC: ANHED 23:45 → ANH3MEDSUR 04-11 00:09
PROVIDERS: Admitting Provider Student in an Organized Health Care Education/Training Program; Emergency Provider Emergency Medicine; PCP Hospitalist; Visit Provider Student in an Organized Health Care Education/Training Program
DX: N39.0 Urinary tract infection, site not specified (principal); B96.89 Other specified bacterial agents as the cause of diseases classified elsewhere; F03.90 Unspecified dementia, unspecified severity, without behavioral disturbance, psychotic disturbance, mood disturbance, and anxiety; N17.9 Acute kidney failure, unspecified; R33.9 Retention of urine, unspecified; E78.5 Hyperlipidemia, unspecified; R60.0 Localized edema; I12.9 Hypertensive chronic kidney disease with stage 1 through stage 4 chronic kidney disease, or unspecified chronic kidney disease; N18.30 Chronic kidney disease, stage 3 unspecified; I44.0 Atrioventricular block, first degree; I49.1 Atrial premature depolarization; I71.9 Aortic aneurysm of unspecified site, without rupture; M79.606 Pain in leg, unspecified; R19.7 Diarrhea, unspecified; Z20.822 Contact with and (suspected) exposure to COVID-19; Z86.711 Personal history of pulmonary embolism; Z87.891 Personal history of nicotine dependence; Z87.440 Personal history of urinary (tract) infections; Z79.01 Long term (current) use of anticoagulants
CPT/HCPCS: 36415; 51701; 71046; 80053; 81001; 82570; 83605; 83735; 84300; 85025; 85610; 85730; 86140; 87040; 87077; 87086; 87186; 87426; 93005; 96361; 96374; 97110; 97162; 97166; 97530; 97535; 99285; A9270; C9803; G0378; J0696; J7030; J7040; U0003; U0005

== ENCOUNTER 2023-12-07 12:55 | Outpatient (CLI) | payer MEDICARE, SELFPAY ==
--- NOTE | ~2023-12-07 | CT_ITS ---
EXAMINATION: CT diagnostic chest wo con DATE: 12/07/2023 13:31 INDICATION: Right lung mass TECHNIQUE: Computed tomography (CT) of the chest was performed without intravenous contrast. Automate d exposure control and iterative reconstruction technique were employed. Exam dose: 181.21 mGy-cm to savage exam DLP. COMPARISON: 04/10/2022 AP and lateral chest FINDINGS: Incidentally noted are heavily peripherally calcified bilateral breast implants. Approximately 3.9 x 5.7 mm soft tissue density or mucus along the left lateral aspect of the tracheal lumen slightly above the level of the left clavicular head. Ascending aortic aneurysm measuring up to 5.1 cm. The mid aortic arch measures approximately 3.4 cm d iameter. The descending thoracic aorta measures approximately 2.9 cm diameter. 3.2 cm diameter of the abdominal aorta and at the level of the renal arteries. At least 3.3 cm infrar enal abdominal aortic aneurysm is only partially included in the lower most images, the infrarenal ab dominal aortic aneurysm is likely larger than 3.3 cm. Cardiomegaly. Extensive coronary artery calcifications. There is thoracic and abdominal aortic calcif ication as well as great vessel calcifications. No pericardial or pleural effusion. No hilar or mediastinal mass lesion or lymphadenopathy. Mild right apical and right upper lobe pulmonary scarring. Mild emphysematous changes of the lungs. Mild discoid atelectasis or scarring at the base of the left lower lobe. Normal morphology of the adrenal glands. Status post cholecystectomy. Right renal atrophy. Small sliding hiatal hernia. Prominent degenerative disc disease in the lower cervical spine. Degenerative spurring of the thoraci c and lumbar spine. No suspicious osteolytic or osteoblastic lesions are noted. Prominent bilateral glenohumeral osteoarthritis, greater on the left. Synovial osteochondromatosis of the right shoulder. IMPRESSION: Thoracic and abdominal aortic aneurysm Cardiomegaly, extensive coronary artery calcification Mild emphysema Status post cholecystectomy Right renal atrophy Small sliding hiatal hernia Reviewed, dictated and finalized at [facility]. Reviewed, dictated and finalized at [facility].
== END 2023-12-07 12:56 | disposition home or self-care (01) ==
LOC: ANHIMG 12:55
PROVIDERS: PCP Hospitalist; Visit Provider Family Medicine
DX: R91.8 Other nonspecific abnormal finding of lung field (principal); J43.9 Emphysema, unspecified; I51.7 Cardiomegaly; I71.60 Thoracoabdominal aortic aneurysm, without rupture, unspecified; N26.1 Atrophy of kidney (terminal); K44.9 Diaphragmatic hernia without obstruction or gangrene; Z90.49 Acquired absence of other specified parts of digestive tract
CPT/HCPCS: 71250

== ENCOUNTER 2023-12-30 17:00 | Inpatient (IN) | payer MEDICARE, MEDICAID, SELFPAY ==
[2023-12-30] VITALS (11 sets, daily range): BP systolic 61–117; BP diastolic 48–89; PULSE 114–171; RESP 14–41; TEMP 36.5; O2SAT 15–100
--- NOTE | ~2023-12-30 | CT_ITS ---
EXAMINATION: CT chest abdomen pelvis wo con DATE: 12/30/2023 20:46 CDT INDICATION: Altered mental status. Sepsis. TECHNIQUE: Computed tomography (CT) of the chest, abdomen, and pelvis was performed without intraveno us contrast. The dose-length product was 681.00 mGy-cm. COMPARISON: None FINDINGS: CHEST CT: There is a 5 cm ascending thoracic aortic aneurysm. There is atherosclerosis of the aorta and coronar y arteries. Heart size normal. There is an infrarenal abdominal aortic aneurysm measuring 4.8 cm. The re is an endovascular stent in the right common iliac artery. No significant pleural or pericardial effusion. There are calcified bilateral breast implants. There is dependent atelectasis. No endobronchial lesions. No pneumothorax. ABDOMEN/PELVIS CT: Status post cholecystectomy. Pain the liver, spleen, pancreas, adrenal glands are unremarkable. There is severe right renal atrophy. There is a 2 cm left renal cyst. No hydronephrosis. 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 Moderate colonic fecal loading. There is a rectal cat heter. There is a Montgomery catheter. Nonobstructive bowel gas pattern. No free air or free fluid. There is thickening of the rectum with mild surrounding fatty infiltration. Consider stercoral proctitis. IMPRESSION: 1. Abnormal thickening of the rectum with fecal impaction, suspicious for stercoral proctitis. 2: Aneurysms of the ascending thoracic aorta, infrarenal abdominal aorta and left internal iliac jordon ry. Reviewed, dictated and finalized at location [facility]. IMPRESSION: 1. Abnormal thickening of the rectum with fecal impaction, suspicious for sterc oral proctitis. 2: Aneurysms of the ascending thoracic aorta, infrarenal abdominal aorta and le ft internal iliac artery.
--- NOTE | ~2023-12-30 | XR_ITS ---
XR chest 1V portable 12/30/2023 18:03 Indication: Hypoxia Procedure: AP portable chest Comparison: CT dated 12/07/2023 Findings: Heart size normal. There is a coronary artery stent. There is a partially calcified left br east implant. No focal air space disease, pulmonary edema, pleural effusion or suspected pneumothorax . Impression: 1: No acute cardiopulmonary disease. Reviewed, dictated and finalized at location [facility]. Impression: 1: No acute cardiopulmonary disease.
--- NOTE | ~2023-12-30 | CT_ITS ---
EXAMINATION: CT brain wo con DATE: 12/30/2023 20:35 INDICATION: Altered mental status TECHNIQUE: Computed tomography (CT) of the head was performed without intravenous contrast. The dose- length product was 681.00 mGy-cm. Automated exposure control and iterative reconstruction technique w ere employed. COMPARISON: None FINDINGS: Generalized atrophy. There are scattered severe periventricular and subcortical white matte r changes, most likely related to small vessel ischemic disease (microangiopathy). No ventriculomegal y or midline shift. Basilar cisterns are patent. There is intracranial atherosclerosis. Paranasal sin uses and mastoids are pneumatized. No depressed skull fractures. IMPRESSION: 1. No acute intracranial abnormality. Reviewed, dictated and finalized at location [facility].
--- NOTE | 2023-12-30 17:18 | ECG_ITS ---
SEE SCANNED COPY FOR CONFIRMED REPORT MTDD
--- NOTE | 2023-12-30 17:22 | ED.AMS ---
HPI - Altered Mental Status General Chief Complaint: Altered Mental Status <Osiel Luciano PA-C - Last Filed: 12/31/23 02:12> Stated Complaint: low O2 sats <Osiel Luciano PA-C - Last Filed: 12/31/23 02:12> Time Seen by Provider: 12/30/23 17:14 <Osiel Luciano PA-C - Last Filed: 12/31/23 02:12> Source: patient <HOLLEY Shaw Last Filed: 12/31/23 02:12> Mode of arrival: EMS <HOLLEY Shaw Last Filed: 12/31/23 02:12> Limitations: altered mental status and clinical condition <Osiel Luciano PA-C - Last Filed: 12/31/23 02:12> History of Present Illness HPI narrative: This is a 83-year-old female with PMH of TAA, AAA, PE, dementia, CKD, UTI who presents to the ED via EMS for chief complaint of altered mental status. [facility] They report the patient became hypoxic today and is altered. She is normally alert oriented x1 but is not responding as much today. Patient looks when I shower name but cannot provide any kind of history. According to chart patient is DNR, DNI with comfort measures only. Was able to speak with family members who would want us to pursue the cardioversion for afib/central line placement if necessary. Family members is able to contribute additional history. She states that she has been with the patient daily. Reports the patient has had several bouts of diarrhea. Reports that several weeks ago she was diagnosed with C diff. She thought she had been doing better but is wondering if she has something similar again. She also notes that the patient seemed like she was breathing funny and was unsure if she was hypoxic but was told by [facility] staff that her oxygen was okay. Unable to tell if she has had any significant shortness of breath or chest pain. Denies known fevers. <HOLLEY Shaw Last Filed: 12/31/23 02:12> Related Data Home Medications: Home Medications Medication Instructions Recorded Confirmed pravastatin 40 mg tablet 40 mg PO DAILY 04/11/22 12/31/23 furosemide 20 mg tablet (Lasix) 20 mg PO DAILY 04/12/22 12/31/23 Acetaminophen Extra Strength 500 mg PO Q4H PRN Pain (Scale 12/31/23 12/31/23 Score 1-3) bisacodyl 10 mg rectal suppository 10 mg RECTAL DAILY PRN Constipation 12/31/23 12/31/23 cyanocobalamin (vitamin B-12) 1,000 mcg PO DAILY 12/31/23 12/31/23 hydrocortisone 1 % topical cream 1 applic topical BID 12/31/23 12/31/23 loperamide 2 mg PO PRN PRN Loose Stool 12/31/23 12/31/23 magnesium citrate 300 ml PO DAILY PRN Constipation 12/31/23 12/31/23 magnesium hydroxide 400 mg/5 mL 30 ml PO DAILY PRN Constipation 12/31/23 12/31/23 oral suspension (Milk of Magnesia) nitroglycerin 0.4 mg sublingual 0.4 mg sublingual .CHEST PAIN PRN 12/31/23 12/31/23 tablet Chest Pain ramelteon 8 mg tablet 8 mg PO HS 12/31/23 12/31/23 rivaroxaban 10 mg tablet 10 mg PO HS 12/31/23 12/31/23 <Osiel Luciano PA-C - Last Filed: 12/31/23 02:12> Allergies/Adverse Reactions: Allergies Allergy/AdvReac Type Severity Reaction Status Date / Time Sulfa (Sulfonamide Allergy Unknown Verified 04/10/22 20:11 Antibiotics) diphenhydramine AdvReac Nervousness Verified 04/10/22 20:50 [From Benadryl] <Osiel Luciano PA-C - Last Filed: 12/31/23 02:12> Review of Systems Review of Systems: All systems as dictated in HPI <Osiel Luciano PA-C - Last Filed: 12/31/23 02:12> [facility] Past Medical History Medical History: Medical History (Updated 12/31/23 @ 02:12 by Osiel Luciano PA-C) CKD (chronic kidney disease) stage 3, GFR 30-59 ml/min Dementia History of pulmonary embolism Recurrent UTI <Osiel Luciano PA-C - Last Filed: 12/31/23 02:12> Social History Social History: Social History (Updated 04/11/22 @ 01:15 by Sherman Pyle DO) Social History: She lives with her daughter. Fairly dependent on family. Difficulty using walker as she would lean forward and fall over with walker.
[2023-12-30 17:34] LABS: Alveolar/Arterial O2 Gradient 47.7 mmHg; Base Excess ABG -0.8 mEq/l (+/-2.0); Fractional Inspired Oxygen 21 %; HCO3 ABG 21.5 mEq/l (22.0-26.0); Oxygen Content ABG 19.5 %vol (16.0-22.0); Oxygen Saturation ABG 94.7 % (95.0-100.0); Oxyhemoglobin 92.1 % THb (90.0-100.0); PCO2 ABG 29.6 mmHg (35.0-45.0); PO2 ABG 66.6 mmHg (80.0-100.0); PO2 FiO2 Ratio Arterial Blood 3.17 %; Total Hemoglobin 15.1 g/dL (12.0-18.0); pH ABG 7.479 (7.350-7.450)
[2023-12-30 17:35] LABS: Site Drawn RIGHT BRACHIAL
[2023-12-30] MEDS: SODIUM CHLORIDE 0.9% IV 1,000 ML 999 ML IV CONT ×4 (18:00→22:04)
[2023-12-30 18:04] LABS: Basophils Absolute Auto 0.1 K/mm3 (0.0-0.1); Basophils Percent Auto 0.6 % (0.2-1.2); Eosinophils Percent Auto 0.1 % (0-4.4); Hematocrit 45.2 % (37.0-47.0); Hemoglobin 14.1 g/dL (12.0-15.0); Immature Granulocyte Absolute 0.32 K/mm3 (0.00-0.031); Immature Granulocyte Percent A 1.7 % (0-0.5); Lymphocytes Absolute Auto 1.32 K/mm3 (0.9-3.2); Lymphocytes Percent Auto 6.9 % (18.3-44.2); Mean Corpuscular HGB Conc 31.2 g/dl (32-36); Mean Corpuscular Hemoglobin 33.7 pg (26-34); Mean Corpuscular Volume 107.9 fl (80-100); Mean Platelet Volume 11.9 fl (7.4-10.4); Monocytes Absolute Auto 0.8 K/mm3 (0.1-0.6); Monocytes Percent Auto 4.1 % (2.6-8.5); Neutrophils Absolute Auto 16.5 K/mm3 (1.3-6.7); Neutrophils Percent Auto 86.6 % (45.5-73.1); Nucleated Red Blood Cells Perc 0.5 % (0.0-0.2); Platelet Count Result 178 k/mm3 (150-375); Red Blood Count 4.19 M/mm3 (4.2-5.4); Red Cell Distribution Width 16.4 % (11.5-14.5); White Blood Count 19.1 K/mm3 (4.5-10.0)
[2023-12-30 18:19] LABS: Anisocytosis 1+; Ovalocytes 1+; Platelet Estimate Adequate (Adequate); Schistocytes None Seen
[2023-12-30 18:22] LABS: Lactic Acid Reflex 4.6 mmol/L (0.7-2.0)
[2023-12-30 18:29] LABS: INR 1.3; Prothrombin Time 16.4 Seconds (11.1-14.7)
[2023-12-30 18:30] LABS: Partial Thromboplastin Time 27.1 Seconds (22.3-36.8)
[2023-12-30 18:42] LABS: Alanine Aminotransferase 22 U/L (6-35); Albumin Level 3.8 g/dL (3.5-5.1); Alkaline Phosphatase 93 U/L (38-126); Anion Gap 12 mmol/L (4-12); Aspartate Amino Transferase 30 U/L (14-36); Blood Urea Nitrogen 81 mg/dL (7-17); CRP 5.2 mg/dL (<1.0); Calcium 11.7 mg/dL (8.4-10.2); Carbon Dioxide 25 mmol/L (22-30); Chloride 123 mmol/L (98-107); Estimated CRCL calculation 15 ml/min; Estimated Glomerular Filt Rate 17; Glucose 120 mg/dL (65-110); Lipase 73 U/L (23-300); Potassium 3.3 mmol/L (3.4-5.0); Sodium 160 mmol/L (137-145)
[2023-12-30 19:31] LABS: Influenza A QL RT-PCR Negative (Negative); Influenza B QL RT-PCR Negative (Negative); RSV RNA, RT-PCR Negative (Negative); SARS-CoV-2 RNA PCR Negative (Negative)
[2023-12-30 21:01] LABS: Reflex Lactic Acid Yes or No Add Lactic
[2023-12-30] MEDS: PIPERACILLN/TAZ 3.375GM/NS50ML 3.375 GM/50 ML BAG IVPB (21:28)
[2023-12-30 21:41] LABS: Toxigenic C. Diff POSITIVE (NEGATIVE)
[2023-12-30 21:52] LABS: Appearance Urine Sl Cloudy (Clear); Blood Urine 3+ (Negative); Color Urine Yellow (Yellow); Glucose Urine UA Negative (Negative); Ketones Urine Negative (Negative); Nitrate Urine Positive (Negative); Protein Urine 2+ mg/dL (Negative); pH Urine 5.5 (5.0-9.0)
[2023-12-30 21:53] LABS: Add Urine Microscopic? YES; Bilirubin Urine 1+ (Negative); Leukocyte Esterase Ur 3+ LEU/UL (Negative)
[2023-12-30 21:58] LABS: WBC Clumps Urine Present /hpf; WBC Urine 31-50 /hpf (0-3)
[2023-12-30 22:00] LABS: Squamous Epithelial Cell Urine Moderate /hpf (Few); Transitional Epi Cells Urine Rare /hpf
[2023-12-30 22:01] LABS: Renal Epithelial Cells Urine None seen /hpf
[2023-12-30 22:03] LABS: Bacteria Urine 2+ /hpf
[2023-12-30 22:05] LABS: Mucus Urine Present /lpf
[2023-12-30 22:07] LABS: Need Manual Microscopic Yes
[2023-12-30] MEDS: metroNIDAZOLE 500 MG/ISO 100ML 500 MG/100 ML BAG 100 MG IVPB (22:41)
[2023-12-30 23:05] LABS: Lactic Acid 3.1 mmol/L (0.7-2.0)
--- NOTE | 2023-12-30 23:14 | PC.NURSE ---
This RN spoke vasu Prasad from [facility] and gave update on pt staying at this facility.
[2023-12-31] VITALS (15 sets, daily range): BP systolic 68–115; BP diastolic 39–87; PULSE 73–134; RESP 16–28; TEMP 36.6–36.8; O2SAT 90–97
--- NOTE | 2023-12-31 05:40 | PC.NURSE ---
Pt family left. Daughter Lay to be contacted with update. Daughter to be back in the morning.
--- NOTE | 2023-12-31 06:32 | ADMGEN ---
This patient, Christine Glez, was admitted to Medical Room 254-01. Patient/family oriented to hospital policies and general routines including ID bracelet, bed and alarms, visiting hours, pain management, procedures, bathroom and other care routines, personal items, smoking policy, room service/diet, and visiting hours. Information on how to activate the Rapid Response Team has been discussed. Patient/Family are encouraged to report perceived risks to care and to ask questions if they do not understand what they are told or what they should do.
--- NOTE | 2023-12-31 08:49 | PM.IMHP ---
H&P: HPI History of Present Illness Date/Time: 12/31/23 08:49 Chief Complaint: confusion Narrative: This is a 83-year-old female with PMH of TAA, AAA, PE, dementia, CKD, UTI who presents to the ED via EMS for chief complaint of altered mental status.? Patient is coming from [facility] Patient was noted to be hypoxic and confused and not responding much. Patient unable to provide any history. Patient is a DNR DNI with comfort measures only. Patient was diagnosed with C diff several weeks ago. Has had frequent bouts of diarrhea. She is brought to the hospital due to this. History reviewed from the medical records Review of Systems Review of Systems: ROS unobtainable: Yes unobtainable due to mental status PMFSH Past Medical History Medical History (Updated 12/31/23 @ 02:12 by Osiel Luciano PA-C) CKD (chronic kidney disease) stage 3, GFR 30-59 ml/min Dementia History of pulmonary embolism Recurrent UTI Social History Social History (Updated 04/11/22 @ 01:15 by Sherman Pyle DO) Social History: She lives with her daughter. Fairly dependent on family. Difficulty using walker as she would lean forward and fall over with walker. For code status patient is a full code but no intubation. Smoking packs per day: 1 Smoking cigarettes per day: 20.0 Years smoked: 30 Smoking pack-years: 30.00 Smoking status: Unknown if ever smoked Alcohol intake: never Substance use: never Substance use type: does not use Spiritual care concerns: No Meds Home Medications and Allergies Home Medications Medication Instructions Recorded Confirmed Type pravastatin 40 mg tablet 40 mg PO DAILY 04/11/22 12/31/23 History furosemide 20 mg tablet (Lasix) 20 mg PO DAILY 04/12/22 12/31/23 History Acetaminophen Extra Strength 500 mg PO Q4H PRN Pain (Scale 12/31/23 12/31/23 History Score 1-3) bisacodyl 10 mg rectal suppository 10 mg RECTAL DAILY PRN Constipation 12/31/23 12/31/23 History cyanocobalamin (vitamin B-12) 1,000 mcg PO DAILY 12/31/23 12/31/23 History hydrocortisone 1 % topical cream 1 applic topical BID 12/31/23 12/31/23 History loperamide 2 mg PO PRN PRN Loose Stool 12/31/23 12/31/23 History magnesium citrate 300 ml PO DAILY PRN Constipation 12/31/23 12/31/23 History magnesium hydroxide 400 mg/5 mL 30 ml PO DAILY PRN Constipation 12/31/23 12/31/23 History oral suspension (Milk of Magnesia) nitroglycerin 0.4 mg sublingual 0.4 mg sublingual .CHEST PAIN PRN 12/31/23 12/31/23 History tablet Chest Pain ramelteon 8 mg tablet 8 mg PO HS 12/31/23 12/31/23 History rivaroxaban 10 mg tablet 10 mg PO HS 12/31/23 12/31/23 History Allergies Allergy/AdvReac Type Severity Reaction Status Date / Time Sulfa (Sulfonamide Allergy Unknown Verified 04/10/22 20:11 Antibiotics) diphenhydramine AdvReac Nervousness Verified 04/10/22 20:50 [From Benadryl] Vital Signs Vital Signs - 24 hr 12/30/23 17:12 12/30/23 17:49 12/30/23 17:15 Temperature 97.7 F Pulse Rate 169 H 121 H Respiratory Rate 24 H 16 Blood Pressure 87/67 L 61/48 L Pulse Oximetry 87 L 92 Oxygen Delivery Room Air Nasal Cannula Oxygen Flow Rate 3 12/30/23 17:15 12/30/23 17:18 12/30/23 17:58 Temperature Pulse Rate 171 H 137 H Respiratory Rate 41 H 29 H 21 H Blood Pressure 87/61 L 117/89 77/63 L Pulse Oximetry 74 L Oxygen Delivery Oxygen Flow Rate 12/30/23 21:28 12/30/23 22:01 12/30/23 21:59 Temperature Pulse Rate 130 H 123 H 143 H Respiratory Rate 25 H 14 24 H Blood Pressure 86/52 L 86/67 L 86/67 L Pulse Oximetry 94 15 L 94 Oxygen Delivery Oxygen Flow Rate 12/30/23 22:48 12/30/23 23:46 12/31/23 00:15 Temperature Pulse Rate 114 H 115 H 115 H Respiratory Rate 24 H 19 22 H Blood Pressure 73/53 L 100/77 115/83 Pulse Oximetry 92 100 92 Oxygen Delivery Oxygen Flow Rate 12/31/23 01:01 12/31/23 01:18 12/31/23 02:41 Temperature Pulse Rate 117 H 118 H 134 H Respiratory
[2023-12-31] MEDS: DEXTROSE 5% 1,000 ML 1,000 ML 100 ML IV CONT (10:16)
--- NOTE | 2023-12-31 14:42 | PCWOUND ---
ANAMARIA NOTE Spoke with patient's RN who states that the patient will be going Hospice and that wound RN not needed to assess.
--- NOTE | 2024-01-01 01:23 | PC.NURSE ---
Dr Meier notified of positive urine culture results of E. Coli. Provider states pt is currently comfort measures w/ hospice anticipated so no antibiotics ordered at this time.
[2024-01-01] MEDS: MORPHINE SULFATE (*CRX) 2 MG/ML INJ IV PUSH (01:46)
[2024-01-01 06:00] VITALS: BP 95/51; PULSE 71; RESP 16; TEMP 36.4; O2SAT 95
--- NOTE | 2024-01-01 07:58 | PM.IMPN ---
Progress Note: A&P Assessment and Plan (1) C. difficile colitis: Code(s): A04.72 - Enterocolitis due to Clostridium difficile, not specified as recurrent Status: Acute Assessment and Plan: 01/01/2024: Patient is C diff positive with frequent bouts of diarrhea Patient is comfort care measures only no active treatment at this time per family request Stool culture is pending Case coordination working on setting inpatient hospice (2) Diarrhea: Code(s): R19.7 - Diarrhea, unspecified Status: Acute Assessment and Plan: See above (3) Acute UTI: Code(s): N39.0 - Urinary tract infection, site not specified Status: Acute Assessment and Plan: 01/01/2024: UA showing 2+ urine protein, 3+ urine blood, positive urine nitrate, 1+ urine bili, 3+ leukocyte, 11-20 urine RBC, 31-50 urine WBC, moderate urine squamous epithelial cells seen, 2+ bacteria. Urine culture showing E coli on preliminary read Blood cultures are showing no growth to date on preliminary read No active treatment at this time as she is comfort measures only per family request Case management working on hospice for inpatient (4) RUFINA (acute kidney injury): Code(s): N17.9 - Acute kidney failure, unspecified Status: Acute Assessment and Plan: 01/01/2024: Creatinine 2.7, EGFR 7 today Baseline creatinine 1.2-1.5 Continue to trend (5) CKD (chronic kidney disease) stage 3, GFR 30-59 ml/min: Code(s): N18.30 - Chronic kidney disease, stage 3 unspecified Status: Acute Assessment and Plan: 01/01/2024: See above (6) AMS (altered mental status): Code(s): R41.82 - Altered mental status, unspecified Status: Acute Assessment and Plan: 01/01/2024: Response to pain only, no interaction (7) Dementia: Qualifiers: Dementia behavioral disturbance: with behavioral disturbance Code(s): F03.90 - Unspecified dementia, unspecified severity, without behavioral disturbance, psychotic disturbance, mood disturbance, and anxiety Status: Acute Assessment and Plan: Of note Time Spent With Patient Time with patient: 25 - 35 minutes Subjective Date/time seen: 01/01/24 07:58 Interval history: This is an 83-year-old female who presented to the hospital on 12/31/2023 for evaluation confusion. Workup in the hospital included a chest x-ray which was negative. She also had a head CT which was negative for any acute intracranial abnormality. Chest abdomen pelvis CT showed abnormal thickening of the rectum with fecal impaction, suspicious for stercoral proctitis, 2.9 cm ascending thoracic aortic aneurysm. Labs today showed a white blood cell count of 19.1, INR 1.3, sodium 160, potassium 3.3, BUN 81, creatinine 2.7, EGFR 17, lactic acid 4.6 with a repeat lactic of 3.1, C reactive protein 5.2. UA showed 2+ urine protein, 3+ urine blood, positive nitrate, 1+ urine bili, 3+ leukocytes, 11-20 urine RBC, 31-50 urine WBC, moderate urine squamous epithelial cells, 2+ bacteria, 3-4 hyaline casts. Respiratory panel was negative for influenza a and B, RSV, COVID. She is positive for C diff. urine culture showing E coli on preliminary read, stool culture is still pending, blood culture showing no growth on preliminary read. Patient is a DNR DNI with comfort measures only however she was diagnosed with C diff a few weeks ago and has had frequent bouts of diarrhea so she was brought to the hospital because of this. Patient was given morphine and Ativan in the ED. there was some confusion with the comfort measures only and the family understanding. I spoke with both the son Alejandro and daughter Lay about their mother's poor prognosis at this time. After speaking with them and answering their questions they agree that hospice comfort would be more appropriate for her at this time. I did discuss with them that we would not actively treat her C diff and we would not active
[2024-01-01 09:10] VITALS: O2SAT 95
[2024-01-01 09:14] VITALS: O2SAT 94
[2024-01-01 09:39] VITALS: O2SAT 95
[2024-01-01 19:42] VITALS: BP 90/58; PULSE 105; RESP 16; TEMP 37.5; O2SAT 92
--- NOTE | 2024-01-01 20:06 | P.PNCROSS_ITS ---
Event Note Event Note Event Note: Bedside nursing staff spoke with family at length and they are requesting anti biotic treatment contrary to conversations that rounding team had with family. Will order Dificid and ceftriaxone for UTI and C diff infection. Clarification needed on measures family would like taken.
--- NOTE | 2024-01-01 23:26 | PC.NURSE ---
Pt was unable to take 2100 dose of Dificid PO. Pt was unable to understand to swallow medication. Pt was redirected and was unable to re-orient patient.
[2024-01-02 03:47] VITALS: BP 89/53; PULSE 76; RESP 14; TEMP 36.6; O2SAT 91
--- NOTE | 2024-01-02 12:00 | PM.IMPN ---
Progress Note: A&P Assessment and Plan (1) C. difficile colitis: Code(s): A04.72 - Enterocolitis due to Clostridium difficile, not specified as recurrent Status: Acute Assessment and Plan: C diff positive, no diarrhea during exam Family is requesting antibiotic treatment until established with hospice care at home Stool culture is pending In-patient hospice denied (2) Diarrhea: Code(s): R19.7 - Diarrhea, unspecified Status: Acute Assessment and Plan: See above (3) Acute UTI: Code(s): N39.0 - Urinary tract infection, site not specified Status: Acute Assessment and Plan: UA showing 2+ urine protein, 3+ urine blood, positive urine nitrate, 1+ urine bili, 3+ leukocyte, 11-20 urine RBC, 31-50 urine WBC, moderate urine squamous epithelial cells seen, 2+ bacteria. Urine culture showing E coli on preliminary read Ceftriaxone 1 g Q 24 hours, if patient has no IV access please give IM (4) RUFINA (acute kidney injury): Code(s): N17.9 - Acute kidney failure, unspecified Status: Acute Assessment and Plan: 01/01/2024: Creatinine 2.7, EGFR 7 today Baseline creatinine 1.2-1.5 Continue to trend (5) CKD (chronic kidney disease) stage 3, GFR 30-59 ml/min: Code(s): N18.30 - Chronic kidney disease, stage 3 unspecified Status: Acute Assessment and Plan: 01/01/2024: See above (6) AMS (altered mental status): Code(s): R41.82 - Altered mental status, unspecified Status: Acute Assessment and Plan: Response to pain only, no interaction (7) Dementia: Qualifiers: Dementia behavioral disturbance: with behavioral disturbance Code(s): F03.90 - Unspecified dementia, unspecified severity, without behavioral disturbance, psychotic disturbance, mood disturbance, and anxiety Status: Acute Assessment and Plan: - (8) Poor feeding: Code(s): R63.30 - Feeding difficulties, unspecified Status: Acute Assessment and Plan: -patient is not following commands during meals, not willing to participate with eating. -start LR 75 mL/hour -spoke with family who report they will continue to encourage eating and drinking when by the bedside Plan -continue DNR/DNI, at this moment family has requested patient received antibiotics, and IV fluid until patient has been formally accepted for hospice at home. At this time comfort measures will be discontinued, family reports they still do want or wish for any invasive procedures with pt at this time. We have also discussed the fact that pt continues to pull on lines, family has requested mittens are placed on pt so that she is able to receive antibiotics and fluid resuscitation. Subjective Date/time seen: 01/02/24 12:00 Interval history: Patient seen this morning she is resting with eyes closed easily arouses in no acute distress, confused disoriented unable to provide any HPI answer questions. Pt pulls on lines, and her gown when trying to perform exam. Review of Systems Review of Systems: ROS unobtainable: Yes unobtainable due to mental status Exam Narrative: General: Chronically ill-appearing, non-verbal Head: atraumatic, no encephalopathy Eyes: EOMI, PERRLA, sclera clear ENT: moist mucous membranes, nasal passages clear Neck: supple, no JVD, no adenopathy, trachea midline Cardiac: Normal S1 and S2. No murmur, gallops or friction rubs, peripheral pulses intact. Respiratory: Lungs diminished to auscultation, no adventitious lung sounds, currently on room air with oxygen saturation 95-97% Gastrointestinal: soft, non-distended, non-tender, normoactive bowel sounds. : voiding without difficulty. Extremities: moves all extremities well, mild to 1+ edema bilateral lower extremity Skin: Bruise on her bottom lip Neuro: responds to stimuli and pain Psych: Unable to assess Objective Data Vital Signs Vital Signs: Vital Signs - 24
[2024-01-02 14:00] VITALS: BP 138/81; PULSE 89; RESP 14; TEMP 36.6; O2SAT 97
[2024-01-02] MEDS: LACTATED RINGERS 1,000 ML 75 ML IV CONT (16:43)
[2024-01-02 20:00] VITALS: O2SAT 91
[2024-01-02 20:29] VITALS: BP 93/60; PULSE 93; RESP 20; TEMP 36.7; O2SAT 93
[2024-01-02] MEDS: SALINE LOCK FLUSH 10 ML IV PUSH (20:33)
[2024-01-03] MEDS: SALINE LOCK FLUSH 10 ML IV PUSH ×3 (05:05→20:42)
[2024-01-03 07:45] VITALS: RESP 20; O2SAT 93
[2024-01-03] MEDS: FIDAXOMICIN 200 MG TABLET PO ×2 (09:19→20:42)
[2024-01-03] MEDS: MEROPENEM 500 MG in SODIUM CHLORIDE 0.9% IV 100 ML 200 ML IVPB ×2 (11:09→20:42)
[2024-01-03 13:44] VITALS: BP 94/59; PULSE 53; RESP 18; TEMP 36.4; O2SAT 93
[2024-01-03] MEDS: LACTATED RINGERS 1,000 ML 75 ML IV CONT (13:49)
[2024-01-03 13:57] LABS: Basophils Absolute Auto 0.1 K/mm3 (0.0-0.1); Basophils Percent Auto 0.4 % (0.2-1.2); Eosinophils Percent Auto 0.2 % (0-4.4); Hematocrit 36.4 % (37.0-47.0); Hemoglobin 10.7 g/dL (12.0-15.0); Immature Granulocyte Absolute 0.55 K/mm3 (0.00-0.031); Immature Granulocyte Percent A 3.5 % (0-0.5); Immature Platelet Fraction Pct 6.6 % (0.9-11.2); Lymphocytes Absolute Auto 1.55 K/mm3 (0.9-3.2); Lymphocytes Percent Auto 9.8 % (18.3-44.2); Mean Corpuscular HGB Conc 29.4 g/dl (32-36); Mean Corpuscular Hemoglobin 32.5 pg (26-34); Mean Corpuscular Volume 110.6 fl (80-100); Monocytes Absolute Auto 0.6 K/mm3 (0.1-0.6); Monocytes Percent Auto 3.6 % (2.6-8.5); Neutrophils Percent Auto 82.5 % (45.5-73.1); Nucleated Red Blood Cells Perc 0.2 % (0.0-0.2); Platelet Count Result 70 k/mm3 (150-375); Red Blood Count 3.29 M/mm3 (4.2-5.4); Red Cell Distribution Width 16.9 % (11.5-14.5); White Blood Count 15.8 K/mm3 (4.5-10.0)
[2024-01-03 14:17] LABS: Anion Gap 6 mmol/L (4-12); Blood Urea Nitrogen 60 mg/dL (7-17); Calcium 10.3 mg/dL (8.4-10.2); Carbon Dioxide 23 mmol/L (22-30); Chloride 140 mmol/L (98-107); Estimated CRCL calculation 16 ml/min; Estimated Glomerular Filt Rate 18; Glucose 74 mg/dL (65-110); Potassium 2.9 mmol/L (3.4-5.0); Sodium 169 mmol/L (137-145)
[2024-01-03] MEDS: DEXTROSE 5% 1,000 ML 1,000 ML 100 ML IV CONT (14:31)
[2024-01-03 16:02] LABS: Platelet Estimate Decreased (Adequate)
[2024-01-03 16:03] LABS: Anisocytosis 2+; Hypochromasia 1+; Schistocytes None Seen
[2024-01-03 16:04] LABS: Macrocytosis 1+ (NORMAL)
--- NOTE | 2024-01-03 16:31 | PM.IMPN ---
Progress Note: A&P Assessment and Plan (1) C. difficile colitis: Code(s): A04.72 - Enterocolitis due to Clostridium difficile, not specified as recurrent Status: Acute Assessment and Plan: C diff positive, no diarrhea during exam Family is requesting antibiotic treatment until established with hospice care at home Stool culture is pending Dificid BID (2) Diarrhea: Code(s): R19.7 - Diarrhea, unspecified Status: Acute Assessment and Plan: See above (3) Acute UTI: Code(s): N39.0 - Urinary tract infection, site not specified Status: Acute Assessment and Plan: UA showing 2+ urine protein, 3+ urine blood, positive urine nitrate, 1+ urine bili, 3+ leukocyte, 11-20 urine RBC, 31-50 urine WBC, moderate urine squamous epithelial cells seen, 2+ bacteria. Urine culture showing E coli ESBL transitioned to meropenem (4) RUFINA (acute kidney injury): Code(s): N17.9 - Acute kidney failure, unspecified Status: Acute (5) CKD (chronic kidney disease) stage 3, GFR 30-59 ml/min: Code(s): N18.30 - Chronic kidney disease, stage 3 unspecified Status: Chronic (6) AMS (altered mental status): Code(s): R41.82 - Altered mental status, unspecified Status: Acute Assessment and Plan: Response to pain only, no interaction awaiting hospice arrangements (7) Dementia: Qualifiers: Dementia behavioral disturbance: with behavioral disturbance Code(s): F03.90 - Unspecified dementia, unspecified severity, without behavioral disturbance, psychotic disturbance, mood disturbance, and anxiety Status: Chronic Assessment and Plan: see above (8) Poor feeding: Code(s): R63.30 - Feeding difficulties, unspecified Status: Chronic Assessment and Plan: -patient is not following commands during meals, not willing to participate with eating. -continue fluids per family, will change to D5w given hypernatremia Plan -continue DNR/DNI, at this moment family has requested patient received antibiotics, and IV fluid until patient has been formally accepted for hospice at home. At this time comfort measures will be discontinued, family reports they still do want or wish for any invasive procedures with pt at this time. We have also discussed the fact that pt continues to pull on lines, family has requested mittens are placed on pt so that she is able to receive antibiotics and fluid resuscitation. Subjective Date/time seen: 01/03/24 16:31 Interval history: Patient in no acute distress this morning, discussed plan of care with family at bedside. They would like continued antibiotic therapy as well as fluids and repeat labs drawn today. Plan for in-home hospice awaiting additional help to be arranged. Review of Systems Review of Systems: ROS unobtainable: Yes unobtainable due to mental status Exam Narrative: General: Chronically ill-appearing, non-verbal Head: atraumatic Eyes: EOMI, PERRLA Neck: supple Cardiac: RRR, Normal S1 and S2. Respiratory: Lungs diminished to auscultation Gastrointestinal: soft, non-distended, non-tender, normoactive bowel sounds. Extremities: mild to 1+ edema bilateral lower extremity Skin: Bruise on her bottom lip Neuro: responds to stimuli and pain Psych: Unable to assess Objective Data Vital Signs Vital Signs: Vital Signs - 24 hr 01/02/24 20:29 01/02/24 20:00 01/03/24 07:45 Temperature 98.1 F Pulse Rate 93 Respiratory Rate 20 20 Blood Pressure 93/60 L Pulse Oximetry 93 91 93 Oxygen Delivery Nasal Cannula Nasal Cannula Oxygen Flow Rate 3 3 01/03/24 13:44 Temperature 97.5 F L Pulse Rate 53 L Respiratory Rate 18 Blood Pressure 94/59 L Pulse Oximetry 93 Oxygen Delivery Oxygen Flow Rate Intake/Output Intake/Output: Intake & Output 12/31/23 01/01/24 01/02/24 01/03/24 23:59 23:59 23:59 23:59 Intake Total 0 50 50 100 Output Total
[2024-01-03 20:00] VITALS: O2SAT 91
[2024-01-03 20:32] VITALS: BP 98/66; PULSE 74; RESP 18; TEMP 36.6; O2SAT 91
[2024-01-04] MEDS: DEXTROSE 5% 1,000 ML 1,000 ML 100 ML IV CONT ×2 (00:21→18:06)
[2024-01-04] MEDS: SALINE LOCK FLUSH 10 ML IV PUSH ×3 (05:58→21:03)
[2024-01-04 08:03] VITALS: RESP 18; O2SAT 91
[2024-01-04] MEDS: MEROPENEM 500 MG in SODIUM CHLORIDE 0.9% IV 100 ML 200 ML IVPB ×2 (08:51→20:58)
[2024-01-04] MEDS: FIDAXOMICIN 200 MG TABLET PO ×2 (08:52→20:58)
[2024-01-04 09:35] VITALS: BP 97/65; PULSE 80; RESP 16; TEMP 36.4; O2SAT 93
[2024-01-04] MEDS: LACTATED RINGERS 1,000 ML 75 ML IV CONT (13:39)
[2024-01-04 14:00] VITALS: PULSE 83; RESP 16; O2SAT 100
[2024-01-04] MEDS: POTASSIUM CHLORIDE INJ 40 MEQ in SODIUM CHLORIDE 0.9% IV 500 ML 130 MEQ IVPB (14:04)
[2024-01-04 14:51] VITALS: BP 89/58; TEMP 36.3
--- NOTE | 2024-01-04 14:52 | PM.IMPN ---
Progress Note: A&P Assessment and Plan (1) C. difficile colitis: Code(s): A04.72 - Enterocolitis due to Clostridium difficile, not specified as recurrent Status: Acute Assessment and Plan: C diff positive, loose stool reported this am Family is requesting antibiotic treatment until established with hospice care at home Stool culture is pending Dificid BID, will continue at d/c. Patient did not receive first dose until yesterday as she would not take it prior (2) Diarrhea: Code(s): R19.7 - Diarrhea, unspecified Status: Acute Assessment and Plan: See above (3) Acute UTI: Code(s): N39.0 - Urinary tract infection, site not specified Status: Acute Assessment and Plan: UA showing 2+ urine protein, 3+ urine blood, positive urine nitrate, 1+ urine bili, 3+ leukocyte, 11-20 urine RBC, 31-50 urine WBC, moderate urine squamous epithelial cells seen, 2+ bacteria. Urine culture showing E coli ESBL transitioned to meropenem (4) RUFINA (acute kidney injury): Code(s): N17.9 - Acute kidney failure, unspecified Status: Acute (5) CKD (chronic kidney disease) stage 3, GFR 30-59 ml/min: Code(s): N18.30 - Chronic kidney disease, stage 3 unspecified Status: Chronic (6) AMS (altered mental status): Code(s): R41.82 - Altered mental status, unspecified Status: Acute Assessment and Plan: mitten restraints awaiting hospice arrangements (7) Dementia: Qualifiers: Dementia behavioral disturbance: with behavioral disturbance Code(s): F03.90 - Unspecified dementia, unspecified severity, without behavioral disturbance, psychotic disturbance, mood disturbance, and anxiety Status: Chronic Assessment and Plan: see above (8) Poor feeding: Code(s): R63.30 - Feeding difficulties, unspecified Status: Chronic Assessment and Plan: -patient is not following commands during meals, not willing to participate with eating. -continue fluids per family, will change to D5w given hypernatremia -speech evaluation ordered today per family request Subjective Date/time seen: 01/04/24 14:52 Interval history: Patient in no acute distress this morning, discussed plan of care with family at bedside. Discussed what interventions they would like done as we have more information after repeating labs. Will continue to treat with AB, give potassium repletion and fluids per family request. Family is also now requesting speech evaluation for her little interest in eating and dysphagia. Discussed with family the difference between interventional therapies/SOC and observation of her labs, etc as they are requesting. Verbalizes understanding. Plan for in-home hospice awaiting additional help to be arranged. Plan to d/c home to hospice care in next 1-2 days. Review of Systems Review of Systems: ROS unobtainable: Yes unobtainable due to mental status Exam Narrative: General: Chronically ill-appearing, non-verbal Head: atraumatic Eyes: EOMI, PERRLA Neck: supple Cardiac: RRR, Normal S1 and S2. Respiratory: Lungs diminished to auscultation Gastrointestinal: soft, non-distended, non-tender, normoactive bowel sounds. Extremities: mild to 1+ edema bilateral lower extremity Skin: Bruise on her bottom lip Neuro: responds to stimuli and pain Psych: Unable to assess Objective Data Vital Signs Vital Signs: Vital Signs - 24 hr 01/03/24 20:32 01/03/24 20:00 01/04/24 08:03 Temperature 97.8 F Pulse Rate 74 Respiratory Rate 18 18 Blood Pressure 98/66 L Pulse Oximetry 91 91 91 Oxygen Delivery Nasal Cannula Nasal Cannula Oxygen Flow Rate 3 3 01/04/24 09:35 01/04/24 14:00 01/04/24 14:51 Temperature 97.6 F 97.3 F L Pulse Rate 80 83 Respiratory Rate 16 16 Blood Pressure 97/65 L 89/58 L Pulse Oximetry 93 100 Oxygen Delivery Oxygen Flow Rate Intake/Output Intake/Output: Intake
[2024-01-04 20:00] VITALS: O2SAT 92
[2024-01-04 20:16] VITALS: BP 113/97; PULSE 89; RESP 16; TEMP 36.1; O2SAT 92
[2024-01-05] VITALS (7 sets, daily range): BP systolic 99–105; BP diastolic 42–69; PULSE 36–84; RESP 16–20; TEMP 36.2–37.1; O2SAT 90–100
[2024-01-05] MEDS: SALINE LOCK FLUSH 10 ML IV PUSH ×3 (05:11→20:01)
[2024-01-05] MEDS: DEXTROSE 5% 1,000 ML 1,000 ML 100 ML IV CONT ×2 (05:16→17:00)
[2024-01-05 06:10] LABS: Hematocrit 32.7 % (37.0-47.0); Hemoglobin 9.7 g/dL (12.0-15.0); Immature Platelet Fraction Pct 8.5 % (0.9-11.2); Mean Corpuscular HGB Conc 29.7 g/dl (32-36); Mean Corpuscular Hemoglobin 33.3 pg (26-34); Mean Corpuscular Volume 112.4 fl (80-100); Mean Platelet Volume 12.5 fl (7.4-10.4); Platelet Count Result 53 k/mm3 (150-375); Red Blood Count 2.91 M/mm3 (4.2-5.4); Red Cell Distribution Width 17.2 % (11.5-14.5); White Blood Count 9.3 K/mm3 (4.5-10.0)
--- NOTE | 2024-01-05 08:46 | PM.IMPN ---
Progress Note: A&P Assessment and Plan (1) C. difficile colitis: Code(s): A04.72 - Enterocolitis due to Clostridium difficile, not specified as recurrent Status: Acute Assessment and Plan: C diff positive, loose stool reported this am Family is requesting antibiotic treatment until established with hospice care at home Stool culture is pending Dificid BID, will continue at d/c. Patient did not receive first dose until yesterday as she would not take it prior 01/04: Continue Dificid (2) Diarrhea: Code(s): R19.7 - Diarrhea, unspecified Status: Acute Assessment and Plan: See above (3) Acute UTI: Code(s): N39.0 - Urinary tract infection, site not specified Status: Acute Assessment and Plan: UA showing 2+ urine protein, 3+ urine blood, positive urine nitrate, 1+ urine bili, 3+ leukocyte, 11-20 urine RBC, 31-50 urine WBC, moderate urine squamous epithelial cells seen, 2+ bacteria. Urine culture showing E coli ESBL transitioned to meropenem 01/04: Continue meropenem until 01-06 (4) RUFINA (acute kidney injury): Code(s): N17.9 - Acute kidney failure, unspecified Status: Acute Assessment and Plan: Creatinine 1.6 today, down from 2.5 on admission Potassium 3.7 today up from 2.9 on admission Sodium is normalizing 156 today, down from 169 on admission. Repeat a sodium this afternoon. (5) CKD (chronic kidney disease) stage 3, GFR 30-59 ml/min: Code(s): N18.30 - Chronic kidney disease, stage 3 unspecified Status: Chronic Assessment and Plan: See RUFINA (6) AMS (altered mental status): Code(s): R41.82 - Altered mental status, unspecified Status: Acute Assessment and Plan: mitten restraints awaiting hospice arrangements 01/04: Alert but confused Encourage family at bedside Reorient as needed (7) Dementia: Qualifiers: Dementia behavioral disturbance: with behavioral disturbance Code(s): F03.90 - Unspecified dementia, unspecified severity, without behavioral disturbance, psychotic disturbance, mood disturbance, and anxiety Status: Chronic Assessment and Plan: see above (8) Poor feeding: Code(s): R63.30 - Feeding difficulties, unspecified Status: Chronic Assessment and Plan: -patient is not following commands during meals, not willing to participate with eating. -continue fluids per family, will change to D5w given hypernatremia -speech evaluation ordered today per family request 01/04: Speech therapy evaluated patient. Recommending pureed diet and regular liquids by spoon. Small bites and sips in the upright position. No further speech therapy needs. Patient can have a general diet Plan Correct electrolyte derangement Finish treatment for UTI DC Wednesday with hospice Subjective Date/time seen: 01/05/24 08:46 Interval history: This is a 83-year-old female with PMH of TAA, AAA, PE, dementia, CKD, UTI who presents to the ED via EMS for chief complaint of altered mental status.??She has been diagnosed with UTI and recurrent C-diff. Family is wanting hospice consult at discharge. Interval history: 01/04: Patient is seen resting in bed in no acute distress. She is alert but nonverbal for me. Her daughter Melanie is at the bedside. Continue treatment for urinary tract infection and correction of electrolyte derangement. Patient is planning to discharge home when medically ready with hospice consult. Anticipate resolution of labs the next 2-3 days. Review of Systems Review of Systems: ROS unobtainable: Yes unobtainable due to mental status Exam Narrative: General: Elderly and chronically ill-appearing, well developed, well nourished, appears stated age. HEENT: normocephalic, atraumatic. Mucous membranes moist. EOMI, PERRLA, bilateral sclera anicteric, no conjunctival injection. Neck supple without JVD, lymphadenopathy, or bruit. tien
[2024-01-05] MEDS: FIDAXOMICIN 200 MG TABLET PO ×2 (09:04→20:01)
[2024-01-05] MEDS: MEROPENEM 500 MG in SODIUM CHLORIDE 0.9% IV 100 ML IVPB (09:04)
[2024-01-05 09:32] LABS: Anion Gap 4 mmol/L (4-12); Blood Urea Nitrogen 35 mg/dL (7-17); Calcium 9.3 mg/dL (8.4-10.2); Carbon Dioxide 18 mmol/L (22-30); Chloride 134 mmol/L (98-107); Estimated CRCL calculation 25 ml/min; Estimated Glomerular Filt Rate 31; Glucose 100 mg/dL (65-110); Potassium 3.7 mmol/L (3.4-5.0); Sodium 156 mmol/L (137-145)
--- NOTE | 2024-01-05 11:29 | PCSTNOTE ---
Please refer to the Bedside Swallow Evaluation in the EMR. Please note, silent aspiration cannot be ruled out at bedside.
[2024-01-05 17:10] LABS: Magnesium 2.8 mg/dL (1.6-2.3); Sodium 155 mmol/L (137-145)
[2024-01-05] MEDS: SACCHAROMYCES BOULARDII 250 MG CAPSULE PO (18:29)
[2024-01-05] MEDS: MEROPENEM 500 MG in SODIUM CHLORIDE 0.9% IV 100 ML 200 ML IVPB (20:00)
[2024-01-06] MEDS: DEXTROSE 5% 1,000 ML 1,000 ML 100 ML IV CONT ×2 (05:42→17:11)
[2024-01-06] MEDS: SALINE LOCK FLUSH 10 ML IV PUSH ×3 (05:42→20:52)
[2024-01-06 08:00] VITALS: O2SAT 96
[2024-01-06] MEDS: MEROPENEM 500 MG in SODIUM CHLORIDE 0.9% IV 100 ML IVPB ×2 (08:26→21:35)
[2024-01-06] MEDS: FIDAXOMICIN 200 MG TABLET PO ×2 (08:27→20:45)
[2024-01-06] MEDS: SACCHAROMYCES BOULARDII 250 MG CAPSULE PO (08:27)
--- NOTE | 2024-01-06 08:37 | PM.IMPN ---
Progress Note: A&P Assessment and Plan (1) C. difficile colitis: Code(s): A04.72 - Enterocolitis due to Clostridium difficile, not specified as recurrent Status: Acute Assessment and Plan: C diff positive, loose stool reported this am Family is requesting antibiotic treatment until established with hospice care at home Stool culture is pending Dificid BID, will continue at d/c. Patient did not receive first dose until yesterday as she would not take it prior 01/04: Continue Dificid 01/05: 1 BM today. Dificid BID until 01/10/24. (2) Diarrhea: Code(s): R19.7 - Diarrhea, unspecified Status: Acute Assessment and Plan: See above (3) Acute UTI: Code(s): N39.0 - Urinary tract infection, site not specified Status: Acute Assessment and Plan: UA showing 2+ urine protein, 3+ urine blood, positive urine nitrate, 1+ urine bili, 3+ leukocyte, 11-20 urine RBC, 31-50 urine WBC, moderate urine squamous epithelial cells seen, 2+ bacteria. Urine culture showing E coli ESBL transitioned to meropenem 01/04: Continue meropenem until 01-06 (4) RUFINA (acute kidney injury): Code(s): N17.9 - Acute kidney failure, unspecified Status: Acute Assessment and Plan: Creatinine 1.6 today, down from 2.5 on admission Potassium 3.7 today up from 2.9 on admission Sodium is normalizing 156 today, down from 169 on admission. Repeat a sodium this afternoon. (5) CKD (chronic kidney disease) stage 3, GFR 30-59 ml/min: Code(s): N18.30 - Chronic kidney disease, stage 3 unspecified Status: Chronic Assessment and Plan: See RUFINA (6) AMS (altered mental status): Code(s): R41.82 - Altered mental status, unspecified Status: Acute Assessment and Plan: mitten restraints awaiting hospice arrangements 01/04: Alert but confused Encourage family at bedside Reorient as needed (7) Dementia: Qualifiers: Dementia behavioral disturbance: with behavioral disturbance Code(s): F03.90 - Unspecified dementia, unspecified severity, without behavioral disturbance, psychotic disturbance, mood disturbance, and anxiety Status: Chronic Assessment and Plan: see above (8) Poor feeding: Code(s): R63.30 - Feeding difficulties, unspecified Status: Chronic Assessment and Plan: -patient is not following commands during meals, not willing to participate with eating. -continue fluids per family, will change to D5w given hypernatremia -speech evaluation ordered today per family request 01/04: Speech therapy evaluated patient. Recommending pureed diet and regular liquids by spoon. Small bites and sips in the upright position. No further speech therapy needs. Patient can have a general diet Plan Correct electrolyte derangement Finish treatment for UTI DC Wednesday with hospice Subjective Date/time seen: 01/06/24 08:37 Interval history: This is a 83-year-old female with PMH of TAA, AAA, PE, dementia, CKD, UTI who presents to the ED via EMS for chief complaint of altered mental status.??She has been diagnosed with UTI and recurrent C-diff. Family is wanting hospice consult at discharge. Interval history: 01/04: Patient is seen resting in bed in no acute distress. She is alert but nonverbal for me. Her daughter Melanie is at the bedside. Continue treatment for urinary tract infection and correction of electrolyte derangement. Patient is planning to discharge home when medically ready with hospice consult. Anticipate resolution of labs the next 2-3 days. 01/05: Resting in bed in no acute distress. No acute events overnight. Continuing with IV antibiotics and IV fluids. EOT for antibiotics is 01/06. Review of Systems Review of Systems: ROS unobtainable: Yes unobtainable due to mental status Exam Narrative: General: Elderly and chronically ill-appearing, thin, frail, appears stated age. ELOISA
[2024-01-06 14:10] VITALS: BP 90/50; PULSE 73; RESP 15; TEMP 36.3; O2SAT 100
[2024-01-06 16:54] LABS: Basophils Absolute Auto 0.1 K/mm3 (0.0-0.1); Basophils Percent Auto 0.7 % (0.2-1.2); Eosinophils Absolute Auto 0.1 K/mm3 (0-0.3); Eosinophils Percent Auto 1.3 % (0-4.4); Hematocrit 31.4 % (37.0-47.0); Hemoglobin 9.5 g/dL (12.0-15.0); Immature Granulocyte Percent A 5.6 % (0-0.5); Lymphocytes Percent Auto 16.9 % (18.3-44.2); Mean Corpuscular HGB Conc 30.3 g/dl (32-36); Mean Corpuscular Hemoglobin 32.4 pg (26-34); Mean Corpuscular Volume 107.2 fl (80-100); Mean Platelet Volume 12.9 fl (7.4-10.4); Monocytes Absolute Auto 0.4 K/mm3 (0.1-0.6); Monocytes Percent Auto 5.5 % (2.6-8.5); Platelet Count Result 46 k/mm3 (150-375); Red Blood Count 2.93 M/mm3 (4.2-5.4); Red Cell Distribution Width 16.5 % (11.5-14.5); White Blood Count 7.1 K/mm3 (4.5-10.0)
[2024-01-06 17:05] LABS: Alanine Aminotransferase 15 U/L (6-35); Albumin Level 2.1 g/dL (3.5-5.1); Alkaline Phosphatase 50 U/L (38-126); Anion Gap 0 mmol/L (4-12); Aspartate Amino Transferase 30 U/L (14-36); Bilirubin,Total 0.9 mg/dL (0.2-1.3); Blood Urea Nitrogen 25 mg/dL (7-17); Calcium 8.7 mg/dL (8.4-10.2); Carbon Dioxide 21 mmol/L (22-30); Chloride 123 mmol/L (98-107); Estimated CRCL calculation 33 ml/min; Estimated Glomerular Filt Rate 43; Glucose 92 mg/dL (65-110); Magnesium 2.4 mg/dL (1.6-2.3); Potassium 2.9 mmol/L (3.4-5.0); Sodium 144 mmol/L (137-145)
[2024-01-06 17:37] LABS: Platelet Estimate Decreased (Adequate)
[2024-01-06 17:38] LABS: Anisocytosis 1+; Macrocytosis 1+ (NORMAL); Schistocytes None Seen
[2024-01-06] MEDS: POTASSIUM CHLORIDE INJ 40 MEQ in SODIUM CHLORIDE 0.9% IV 500 ML 130 MEQ IVPB (17:41)
[2024-01-06 22:01] VITALS: BP 87/51; PULSE 74; RESP 15; TEMP 37.1; O2SAT 90
[2024-01-07] MEDS: SALINE LOCK FLUSH 10 ML IV PUSH (04:55)
[2024-01-07 05:24] LABS: Alanine Aminotransferase 15 U/L (6-35); Albumin Level 2.2 g/dL (3.5-5.1); Alkaline Phosphatase 63 U/L (38-126); Anion Gap 3 mmol/L (4-12); Aspartate Amino Transferase 23 U/L (14-36); Bilirubin,Total 0.9 mg/dL (0.2-1.3); Blood Urea Nitrogen 23 mg/dL (7-17); Carbon Dioxide 22 mmol/L (22-30); Chloride 124 mmol/L (98-107); Estimated CRCL calculation 33 ml/min; Estimated Glomerular Filt Rate 43; Glucose 80 mg/dL (65-110); Potassium 3.4 mmol/L (3.4-5.0); Sodium 149 mmol/L (137-145)
[2024-01-07 06:00] VITALS: BP 112/78; PULSE 94; RESP 16; TEMP 36.2; O2SAT 95
--- NOTE | 2024-01-07 07:59 | PM.DS ---
DS: Admitting Diagnosis Discharge Date 01/06/24 Admitting Diagnosis confusion DS: Discharge Diagnosis Discharge Diagnosis (1) C. difficile colitis: Code(s): A04.72 - Enterocolitis due to Clostridium difficile, not specified as recurrent Status: Acute Assessment and Plan: C diff positive, loose stool reported this am Family is requesting antibiotic treatment until established with hospice care at home Stool culture is pending Dificid BID, will continue at d/c. Patient did not receive first dose until yesterday as she would not take it prior 01/04: Continue Dificid 01/05: 1 BM today. Dificid BID until 01/10/24. (2) Diarrhea: Code(s): R19.7 - Diarrhea, unspecified Status: Acute Assessment and Plan: See above (3) Acute UTI: Code(s): N39.0 - Urinary tract infection, site not specified Status: Acute Assessment and Plan: UA showing 2+ urine protein, 3+ urine blood, positive urine nitrate, 1+ urine bili, 3+ leukocyte, 11-20 urine RBC, 31-50 urine WBC, moderate urine squamous epithelial cells seen, 2+ bacteria. Urine culture showing E coli ESBL transitioned to meropenem 01/04: Continue meropenem until 01-06 (4) RUFINA (acute kidney injury): Code(s): N17.9 - Acute kidney failure, unspecified Status: Acute Assessment and Plan: Creatinine 1.6 today, down from 2.5 on admission Potassium 3.7 today up from 2.9 on admission Sodium is normalizing 156 today, down from 169 on admission. Repeat a sodium this afternoon. (5) CKD (chronic kidney disease) stage 3, GFR 30-59 ml/min: Code(s): N18.30 - Chronic kidney disease, stage 3 unspecified Status: Chronic Assessment and Plan: See RUFINA (6) AMS (altered mental status): Code(s): R41.82 - Altered mental status, unspecified Status: Acute Assessment and Plan: mitten restraints awaiting hospice arrangements 01/04: Alert but confused Encourage family at bedside Reorient as needed (7) Dementia: Qualifiers: Dementia behavioral disturbance: with behavioral disturbance Code(s): F03.90 - Unspecified dementia, unspecified severity, without behavioral disturbance, psychotic disturbance, mood disturbance, and anxiety Status: Chronic Assessment and Plan: see above (8) Poor feeding: Code(s): R63.30 - Feeding difficulties, unspecified Status: Chronic Assessment and Plan: -patient is not following commands during meals, not willing to participate with eating. -continue fluids per family, will change to D5w given hypernatremia -speech evaluation ordered today per family request 01/04: Speech therapy evaluated patient. Recommending pureed diet and regular liquids by spoon. Small bites and sips in the upright position. No further speech therapy needs. Patient can have a general diet Plan Correct electrolyte derangement Finish treatment for UTI DC Wednesday with hospice DS: Summary Hospital Course Reason for hospitalization: UTI, c-diff colitis Hospital Course: This is a 83-year-old female with PMH of TAA, AAA, PE, dementia, CKD, UTI who presents to the ED via EMS for chief complaint of altered mental status.??She has been diagnosed with UTI and recurrent C-diff. Family is wanting hospice consult at discharge. Interval history: 01/04:? Patient is seen resting in bed in no acute distress.? She is alert but nonverbal for me.? Her daughter Melanie is at the bedside.? Continue treatment for urinary tract infection and correction of electrolyte derangement.? Patient is planning to discharge home when medically ready with hospice consult.? Anticipate resolution of labs the next 2-3 days. 01/05: Resting in bed in no acute distress. No acute events overnight. Continuing with IV antibiotics and IV fluids. EOT for antibiotics is 01/06. 01/06: Completed antibiotic course for UTI. Patient can be discharged home in [facility]
[2024-01-07 09:02] VITALS: O2SAT 100
[2024-01-07 09:50] VITALS: O2SAT 100
[2024-01-07] MEDS: MEROPENEM 500 MG in SODIUM CHLORIDE 0.9% IV 100 ML IVPB (09:54)
[2024-01-07 13:43] VITALS: BP 88/60; PULSE 58; RESP 20; TEMP 36.2; O2SAT 99
== END 2024-01-07 16:40 | disposition hospice, home (50) | DRG 372 ==
LOC: ANHED 12-31 05:43 → ANH2MED 12-31 06:15
PROVIDERS: Nurse Practitioner; Admitting Provider Internal Medicine; Emergency Provider Physician Assistant; PCP Hospitalist; Visit Provider Nurse Practitioner Acute Care
DX: A04.72 Enterocolitis due to Clostridium difficile, not specified as recurrent (principal); E87.0 Hyperosmolality and hypernatremia; N39.0 Urinary tract infection, site not specified; N17.9 Acute kidney failure, unspecified; N18.30 Chronic kidney disease, stage 3 unspecified; E87.6 Hypokalemia; R63.30 Feeding difficulties, unspecified; B96.20 Unspecified Escherichia coli [E. coli] as the cause of diseases classified elsewhere; I71.40 Abdominal aortic aneurysm, without rupture, unspecified; I71.21 Aneurysm of the ascending aorta, without rupture; F03.90 Unspecified dementia, unspecified severity, without behavioral disturbance, psychotic disturbance, mood disturbance, and anxiety; Z20.822 Contact with and (suspected) exposure to COVID-19; Z79.01 Long term (current) use of anticoagulants; Z86.711 Personal history of pulmonary embolism; Z51.5 Encounter for palliative care; Z87.891 Personal history of nicotine dependence
CPT/HCPCS: 36415; 36569; 36600; 70450; 71045; 71250; 74176; 80048; 80053; 81001; 82805; 83605; 83690; 83735; 84295; 85025; 85027; 85055; 85610; 85730; 86140; 87040; 87045; 87077; 87086; 87088; 87186; 87427; 87449; 87493; 87637; 92610; 93005; 96361; 96365; 96367; 99285; A9270; C1751; G0378; J0696; J1836; J2185; J2270; J2543; J3480; J7030; J7040; J7070; J7120